=== PATIENT | female | born 1960 | race Caucasian/White ===

== ENCOUNTER → 2016-11-15 | Day surgery (SDC) | payer OTHER ==
[~2016-11-15] VITALS: Ht 154.9 cm; Wt 59.0 kg
[~2016-11-15] MED LIST: LATANOPROST2.5 ML OPH; MELATONIN PO; PATADAY2.5 ML OPH; TOVIAZ4 MG PO
--- NOTE | 2016-11-15 15:00 | Operative Report ---
Operative/Inv Procedure Report Surgery Date: 11/15/16 Name of Procedure: urethral sling, cytoscopy Pre-Operative Diagnosis: stress incontinence Post-Operative Diagnosis: same Estimated Blood Loss: less than 50ml Surgeon/Deep Fryer Assembler: BRYANT CHINO MD Anesthesia: local monitored anesthesi Implants: vaginal mesh Complications: none Condition: stable Operative Indication: stress incontinence Operative/Procedure Note Note: Operative dictation on patient Angela Fishman. Patient was identified in the holding area and consented for a urethral sling and cystoscopy. The risks benefits and alternatives of the surgery were given and all questions were answered. Patient was taken to the operating room and placed on the operating table in the supine position. Once timeout was performed the patient was given IV sedation and IV antibiotics. She was placed in the dorsal lithotomy position and prepped and draped in the standard sterile fashion. A Benavidez catheter was placed and the bladder was emptied. The Benavidez was clamped and placed on the patient's abdomen. 1% lidocaine with epinephrine was infiltrated into the anterior vaginal wall suburethrally. Vaginal flaps are created taking care not to injure the bladder or the urethra with Metzenbaum scissors. The Altis Sling kit was then opened and the trochars that are provided was used to place the sling into the obturator fascia on the left and right side. The sling was seen to be in a nice tension-free manner once the Prolene suture was used to tighten the sling. There was grossly irrigated with bacitracin irrigation. The incision was closed with 3-0 Vicryl running locking suture. The catheter was removed and a cystoscopy was performed. The bladder was globally inspected and there were no lesions tumors masses or abnormalities. The ureteral orifices were in their normal location. There was no mesh in the bladder or the urethra or the vaginal fornices. The bladder was emptied. Vaginal packing impregnated with bacitracin ointment was placed into the vaginal vault. Sponge and needle count were correct at the end of the case. Findings: no mesh in bladder, urethra or vaginal fornices. Normal cystoscopy. Discharge Disposition: Same Day Admissions
== END ==
LOC: STS 02:45
DX: N39.3 Stress incontinence (female) (male) (principal); F17.200 Nicotine dependence, unspecified, uncomplicated
CPT/HCPCS: C1771; J0690; J2250

== ENCOUNTER 2017-07-14 10:51 | Inpatient (IN) | payer OTHER ==
[~2017-07-14] VITALS: Ht 157.5 cm; Wt 45.0 kg
[~2017-07-14 10:51] MED LIST changes: +LIDOCAINE5 GM TOP; +MELATONIN3 M4 PO; +VITAMIN D2000 UNIT PO; +VITAMIN E100 UNI2 PO
--- NOTE | 2017-07-14 11:05 | ED PSYCHIATRIC COMPLAINT ---
History of Present Illness General Chief Complaint: Psychiatric Related Complaint Stated Complaint: +SI Source: patient, family Exam Limitations: poor historian Vital Signs & Intake/Output Vital Signs & Intake/Output Vital Signs Date Time Temp Pulse Resp B/P B/P Pulse O2 O2 Flow FiO2 Mean Ox Delivery Rate 07/15 1342 98.0 74 22 161/83 100 Room Air 07/15 0948 97.0 65 22 122/70 94 Room Air 07/15 0638 98.1 83 18 98/77 98 Room Air 07/15 0334 70 16 07/14 2026 98.2 63 16 115/64 100 Room Air 07/14 1811 97.4 86 16 110/72 99 Room Air 07/14 1437 98.0 64 18 132/78 99 Room Air ED Intake and Output 07/15 0000 07/14 1200 Intake Total Output Total Balance Patient 110 lb Weight Weight Reported by Patient Measurement Method Allergies Coded Allergies: meloxicam (Intermediate, ITCH 11/14/16) naproxen (From ALEVE) (Intermediate, ITCH 03/31/17) Triage Note: TRIAGE: 57 Y/O FEMALE PRESENTS WITH DAUGHTER. HISTORY OF BIPOLAR DISORDER. REPORTS INTERMITTENT SUICIDALITY. DENIES HOMOCIDALITY. REPORTS +CIGARETTES AND MARAJUANA; DENIES ETOH CONSUMPTION. WAS ON BOTH SERTRALINE AND FLUPHENAZINE ONE YEAR PRIOR BEFORE STOPPING. Triage Nurses Notes Reviewed? yes Onset: Gradual Duration: worse persistent since (1-2 MONTHS) Timing: recent history Severity: severe Severity Numbers: 10 Associated Symptoms: anxiety, impaired concentration, insomnia, suicidal ideation HPI: Patient is a 57-year-old female with history of bipolar, has been off medications for several months presenting to the emergency department with her daughter with chief complaint of increasing anxiety and depression and suicidal ideation. Patient does admit to auditory and visual hallucinations. Unable to describe exactly what she hears or sees. Denies specific plan for hurting herself. According to the daughter she's been off of her meds for about a year and a half. Unable to the home and take care of her self. (Hayde CRUZ,Rachel) Reconcile Medications Cholecalciferol (Vitamin D3) (Vitamin D) (Unknown Strength) CAPSULE (Unknown Dose) PO DAILY SUPPLEMENT (Reported) Fluphenazine HCl 1 MG TABLET 1 TAB PO QPM PSYCHIATRIC REASONS (Reported) Latanoprost 0.005 % DROPS 1 GTT OPH QPM GLAUCOMA (Reported) BOTH EYES Melatonin 3 MG TABLET 1 TAB PO PRN SLEEP (Reported) Olopatadine HCl (Pataday) 0.2 % DROPS 1 GTT OPH DAILY PRN ALLERGIES (Reported ) Sertraline HCl 25 MG TABLET 1 TAB PO DAILY PSYCHIATRIC REASONS (Reported) Vitamin E Mixed (Vitamin E) (Unknown Strength) TABLET (Unknown Dose) PO DAILY SUPPLEMENT (Reported) (Mi POTTER,Kike Aldrich) Past History Travel History Traveled to [place] past 21 day No Medical History Any Pertinent Medical History? 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 No (Rachel Avalos) Review of Systems Review of Systems Constitutional: Reports: no symptoms. Comments Review of systems: See HPI, All other systems negative. Constitutional, no chills fever or weight loss HEENT: No visual changes no sore throat no congestion Cardiovascular: No chest pain ,palpitation , orthopnea or ankle swelling Skin, no jaundice no rashes Respiratory: No dyspnea cough sputum or hemoptysis GI: No nausea no vomiting : No dysuria No hematuria Muscle skeletal: no back pain, no neck pain, Neurologic: No numbness Psych: Positive stress, anxiety and depression Heme/endocrine: No bruising no bleeding no polyuria or polydipsia Immunology: No splenectomy or history of AIDS (Rachel Avalos) Physical Exam Physical Exam General Appearance: no apparent distress, alert, awake, comfortable, DISHEVELED Neurological/Psychiatric: awake, anxious, MUMBLING, DISHEVELED Comments: Well-developed well-nourished person in no acute distress HEENT: Atraumatic, normocephalic Neck: Normal inspection Back: Nontender Cardiovascular: Regular rate and rhythms no murmurs rubs or gallops, normal JVP Respiratory: Chest nontender. No respiratory distress.breath sounds clear to auscultation bilaterally Extremity: No edema Neuro: Alert oriented to person, confused about place and situation. Skin: No appreciable rash on exposed skin, skin is warm and dry. Psych: Anxious mood, depressed affect, disheveled thought process SAD PERSONS SAD PERSONS Response Value Age <19 or >45 years? yes 1 Depression/Hopelessness? yes 2 Rational Thinking Loss? yes 2 Social Support? has support 0 Total 5 SAD PERSONS Done? yes (Rachel Avalos) Progress Differential Diagnosis: dementia, drug intoxication, drug overdose, drug withdrawal, electrolyte abnormality, MAJOR DEPRESSIVE DISORDER, MEDICATION NONCOMPLIANCE, BIPOLAR, DEPRESSIVE STATE, BIPOLAR MANIC STATE Plan of Care: Orders Procedure Date/time Status Continuous Observation Monitor 07/15 1900 Complete Continuous Observation Monitor 07/15 1500 Complete Vital Signs 07/15 1357 Active Inpt Psych Teach/Educate 07/15 1357 Active Nutritional Intake, Monitor 07/15 1357 Active Inpt Psych Auricular Acupunctu 07/15 1357 Active Continuous Observation Monitor 07/15 1100 Complete Admit to inpatient psych 07/15 1048 Active Continuous Observation Monitor 07/15 0700 Complete Admit to inpatient psych 07/15 UNK Active Nursing Misc 07/15 UNK Active Add-on Test (ER Only) 07/14 2359 Active URINALYSIS 07/14 1200 Complete Intake & Output 07/14 1057 Complete Current Medications Sig/Howard Start time Last Medication Dose Stop Time Status Admin Fluphenazine HCl 2 MG AT BEDTIME 07/15 2200 UNVr (Prolixin 2.5 MG Tablet) Acetaminophen 650 MG Q4P PRN 07/15 1300 AC (Tylenol) Hand-Off Endorsed To: Mi POTTER,Kike Aldrich Pending: consult Comments: 07/14/2017 9:00:24 PM patient will be signed out to Dr. Stark pending reevaluation. (Rachel Avalos) Comments: 07/14/2017 9:02:06 PM patient signed out to me. 07/15/2017 7:37:48 AM patient signed out to Dr. Dejesus at shift change control specialist. (Mi POTTER,Kike Aldrich) Departure Departure Disposition: STILL A PATIENT Condition: Stable Clinical Impression Primary Impression: Bipolar 1 disorder Referrals: Ashwin Begum DO (PCP/Family) Departure Forms: Customer Survey General Discharge Information (Rachel Avalos) Psych Admission Note Psychiatric Admission: I have seen and evaluated GAVIN,SHERRIE A. I have also reviewed all the pertinent lab results and diagnostic results. SHERRIE ALONSO will be admitted to our inpatient Psychiatric unit for treatment and care. PA/TERRAZZO LABORER Co-Sign Statement Statement: ED Attending supervision documentation- x I saw and evaluated the patient. I have also reviewed all the pertinent lab results and diagnostic results. I agree with the findings and the plan of care as documented in the PA's/TERRAZZO LABORER's documentation. [] I have reviewed the ED Record and agree with the PA's/TERRAZZO LABORER's documentation. [] Additions or exceptions (if any) to the PAs/TERRAZZO LABORER's note and plan are summarized below: [] (Oleg POTTER,Dallin)
[2017-07-14 11:41] LABS: ABSOLUTE BASOPHIL COUNT 0.1 /CUMM (0.0-0.2); ABSOLUTE EOSINOPHIL COUNT 0.1 /CUMM (0.0-0.7); ABSOLUTE GRANULOCYTE CT 8.2 /CUMM (1.4-6.5); ABSOLUTE LYMPH COUNT 2.5 /CUMM (1.2-3.4); ABSOLUTE MONOCYTE COUNT 0.7 /CUMM (0.10-0.60); BASOPHIL % 0.5 % (0.0-2.0); EOSINOPHIL % 0.6 % (0-5); GRANULOCYTE % 71.4 % (42.2-75.2); MEAN CORPUSCULAR HGB 32.5 PG (27.0-31.0); MEAN CORPUSCULAR HGB CONC 33.3 G/DL (33.0-37.0); MEAN CORPUSCULAR VOLUME 97.5 FL (81.0-99.0); MEAN PLATELET VOLUME 8.7 FL (7.4-10.4); PLATELET COUNT 376 /CUMM (130-400); RBC DISTRIBUTION WIDTH 13.8 % (11.5-14.5); RED BLOOD CELL CT 4.52 /CUMM (4.20-5.40); WHITE BLOOD CELL COUNT 11.6 /CUMM (4.8-10.8)
--- NOTE | 2017-07-14 14:33 | ED PSY CRISIS COLLATERAL NOTE ---
Collateral Note Collateral Note Family/Inform/Micha Contacts: SW spoke with the patients daughter, Aditi Jean Baptiste ([phone]), for collateral information. Aditi notes that the patient has been diagnosed with Bipolar Disorder for many years. Aditi reports that the patient was stable on her medications, up until about 1.5 years ago, when she stopped all of her medications. Aditi reports that the patient started to travel and found if difficult to obtain her medications, and therefore stopped them. Aditi reports that the patient has decompensated and that she and their family have been trying ot get her back into treatment. Aditi states that today her brother was visiting the patient and called Aditi to say that the patient needed to come into the hospital. Aditi reports that when her brother called her today he stated, that the patient was incontinent, "not making full sentences and huddled in a corner." She is concerned about the patient because she becomes very angry and childlike when she is not stable. Aditi states that the patient has been hospitalized at [facility] and did attempt to OD in the past. Aditi states that the patient needs to be stabilized on her medications and supports an inpatient admission, if that is where that can happen.
[2017-07-14] MEDS ORDERED: SERTRALINE HCL25 MG PO (20:24)
[2017-07-14] MEDS ORDERED: FLUPHENAZINE HCL1 M1 PO (20:25)
--- NOTE | 2017-07-15 10:03 | ED PSYCH CRISIS CONSULTATION ---
Crisis Consult Basic Assessment Date of Consult: 07/15/17 Responsible Person/Accompanied By: self Insurance Authorization: Insurance #1: Insurance name: CHARLI Phone number: Policy number: [id number] Group number: [id number] Authorization number: ED Provider: Patient's ED Provider: Rachel Avalos Primary Care Physician: Patient's PCP: Ashwin Begum DO PCP's Current Psychiatrist: none Chief Complaint: Psychiatric Related Complaint Patient's Quote: I'm overcome with sadness regarding my past. Trying to look forward to futu Present Illness: Pt is a 57 yo female presenting to [place] ED yesterday morning dysregulated and making suicidal statements. Pt brought in by her daughter who reports pt has a bipolar diagnosis but has been off her medications for about 1 yr. Family reports pt was found yesterday morning huddled in the corner incontinent and making bizarre non-sensical statements. reports the other night she was walking around the house naked urinating on the floor. Family reports this is the 3rd time pt has been brought to the hospital for an evaluation this past month. Pt has a hx in the early 1999s of inpatient admissions at [facility] and has been seeing Sol GAMEZ past 10yrs for outpatient therapy. Pt had been stable on medications Sertraline and Fluphenazine for many yrs but when she and moved out of state last yr she wasn't able to connect with a provider thus going off them. Family reports pt has been progressively unstable, manic, dysregulated easily agitated, not sleeping or eating well. Pt makes periodic suicidal statements but no attempts. Pt was evaluated 2 wks ago at [facility] ED and discharged with prescriptions to begin previous medications but pt has been refusing to take them. Pt reports sadness related to of daughter 11 yrs ago and recent of brother. Pt reports holidays are difficult but she tries to keep going a be happy. Pt currently denies SI/HI; AH/VH. Pt reports smoking cannabis and cigarettes daily and admits to 2x/wk etoh use. Pt reports she has been diagnosed bipolar in the past but doesn't believe it. Pt presents as alert, anxious and OX3. Pt appears disheveled with strong body odor. Pt speech is pressured and thoughts are tangential and disorganized. Pt presents with poor insight and judgement. Pt meets criteria for inpatient psychiatric admission. Pt initially opposed admission but after further conversation with her signed voluntary admission paperwork. Patient's Address: [address] [place] [id number] Other Phone Number: Who Do You Live With? Spouse Family/Informants Interviewed: collateral provided by [facility] Sol Contreras [phone], daughter Aditi [phone] and Randy Fishman. Family reports pt functioning has deteriorated since stopping medications. Pt refusing medications. Pt engaging in bizarre behaviors. Allergies - Coded Allergies: meloxicam (Intermediate, ITCH 11/14/16) naproxen (From ALEVE) (Intermediate, ITCH 03/31/17) Current Medications - Scheduled Medications Cholecalciferol (Vitamin D3) (Vitamin D) (Unknown Strength) CAPSULE (Unknown Dose) PO DAILY SUPPLEMENT (Reported) Entered as Reported by Herminia Esteban on 06/06/171613 Last Taken: Unknown Dose at an unknown date and time Fluphenazine HCl 1 MG TABLET 1 TAB PO QPM PSYCHIATRIC REASONS (Reported) Entered as Reported by Jamee Stephenson on 07/14/172024 Latanoprost 0.005 % DROPS 1 GTT OPH QPM GLAUCOMA (Reported) Entered as Reported by Pam Scott on 11/14/16913 Last Taken: At an unknown date and time Sertraline HCl 25 MG TABLET 1 TAB PO DAILY PSYCHIATRIC REASONS (Reported) Entered as Reported by Jamee Stephenson on 07/14/172023 Vitamin E Mixed (Vitamin E) (Unknown Strength) TABLET (Unknown Dose) PO DAILY SUPPLEMENT (Reported) Entered as Reported by Herminia Esteban on 06/06/171613 Last Taken: Unknown Dose at an unknown date and time Scheduled PRN Medications Melatonin 3 MG TABLET 1 TAB PO PRN SLEEP (Reported) Entered as Reported by Herminia Esteban on 06/06/171613 Olopatadine HCl (Pataday) 0.2 % DROPS 1 GTT OPH DAILY PRN ALLERGIES (Reported ) Entered as Reported by Pam Scott on 11/14/16913 Last Taken: At an unknown date and time Laboratory Results: Laboratory Tests 07/14/17 1200: Urine Opiates Screen < 100.00, Methadone Screen < 40, Barbiturate Screen < 60, Ur Phencyclidine Scrn < 6.00, Amphetamines Screen < 100, U Benzodiazepines Scrn < 85, Urine Cocaine Screen < 50, Urine Cannabis Screen > 80.00 H, Urine Color YEL, Urine Clarity HAZY H, Urine pH 6.5, Ur Specific Dunlow 1.010, Urine Protein NEG, Urine Ketones NEG, Urine Nitrite NEG, Urine Bilirubin NEG, Urine Urobilinogen 1.0, Ur Leukocyte Esterase NEG, Ur Microscopic SEDIMENT EXAMINED, Urine RBC 3-5, Urine WBC RARE, Ur Epithelial Cells MANY H, Urine Bacteria FEW H, Urine Hemoglobin MOD H, Urine Glucose NEG 07/14/17 1121: Anion Gap 14, Estimated GFR > 60, BUN/Creatinine Ratio 21.7, Glucose 102 H, Calcium 10.2, Total Bilirubin 1.1, AST 28, ALT 37, Alkaline Phosphatase 60, Total Protein 8.0, Albumin 5.0, Globulin 3.0, Albumin/Globulin Ratio 1.7, TSH & T3 &Free T4 Intrp 1.490, CBC w Diff NO MAN DIFF REQ, RBC 4.52, MCV 97.5, MCH 32.5 H, RDW 13.8, MPV 8.7, Gran % 71.4, Lymphocytes % 21.9, Monocytes % 5.6, Eosinophils % 0.6, Basophils % 0.5, Absolute Granulocytes 8.2 H, Absolute Lymphocytes 2.5, Absolute Monocytes 0.7 H, Absolute Eosinophils 0.1, Absolute Basophils 0.1, PUBS MCHC 33.3, Serum Alcohol < 10.0 Past History Past Medical History Neurological: NONE EENT: NONE Cardiovascular: NONE Respiratory: NONE Gastrointestinal: NONE Hepatic: NONE Renal: NONE Musculoskeletal: NONE Psychiatric: bipolar disease Endocrine: NONE Blood Disorders: NONE Cancer(s): NONE 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 Diagnosis by History: Bipolar Disorder Substance Use/Abuse History Drug Use/Abuse Substances Used/Abused Yes Substance Used/Abused Marijuana Last Used yesterday How often daily Substance Abuse Treatment Substance Abuse Treatment Past Substance Abuse [place] No Inpatient Treatment No Outpatient Treatment No Comments: pt reports daily marijuana use. reports ocassional etoh-2x/wk. denies other substances Current Mental Status Mental Status Orientation: Person, Place, Situation Affect: Anxious, Angry, Sad Speech: Pressured Neuro-vegetative: Appetite Decreased, Sleep Disturbance Appearance Appearance- Dress/Hygiene: hospital scrubs; disheveled; thin Behaviors Thought Process: Flight of Ideas, Irrational, Tangential Thought Content: Paranoid Memory: Impaired Insight: Poor SI/HI Risk Assessment Past Suicidal Ideation/Attempts Yes Current Suicidal Ideation/Att No Past Homicidal Ideation/Att: No Current Homicidal Ideation/Attempts No Degree of Intent: None Danger To: Self Gravely Disabled: Inability, Lack of Insight, Poor Impulse Control, Poor Judgment Risk Factors: high anxiety/distress, SA/MH hospitalized, substance abuse, poor impulse control Lethality Ratin PTSD Checklist PTSD Done? patient declined ED Management Sitter: Yes Restraints: No DSM5/PS Stressors/Medical Prob Diagnosis' (DSM 5, Stressors, Medical): Unspecified Bipolar d/o F33.2 Cannabis use d/o F12.20 family dynamics housing employment Current GAF: 20 Comments: 3rd ED visit past month for emotional dyregulation. Pt unstable since off medications past yr. Departure Disposition Psych Medical Clearance Date: 07/15/17 Medically Cleared at: 0730 Time Started: 0730 Time Ended: 0815 Psychiatrist Consulted: Cheikh Rios MD Date Disposition Established: 07/15/17 Time Disposition Established: 1000 Plan for Disposition - Modality: Inpatient Psychiatry Facility: [facility] Rationale for Disposition: [facility]. Type of IP Admission: Voluntary Referrals Ashwin Begum DO (PCP/Family)
--- NOTE | 2017-07-15 11:24 | IP CRISIS DIAG ASSESS PSYCH ---
Diagnostic Assessment Basic Assessment Insurance Authorization: Insurance #1: Insurance name: CHARLI Phone number: Policy number: [id number] Group number: [id number] Authorization number: [id number] Primary Care Physician: Patient's PCP: Ashwin Begum DO PCP's Patient's Quote: I'm overcome with sadness regarding mypast. Trying to look forward to futu Present Illness: Pt is a 57 yo female presenting to [facility] ED yesterday morning dysregulated and making suicidal statements. Pt brought in by her daughter who reports pt has a bipolar diagnosis but has been off her medications for about 1 yr. Family reports pt was found yesterday morning huddled in the corner incontinent and making bizarre non-sensical statements. reports the other night she was walking around the house naked urinating on the floor. Family reports this is the 3rd time pt has been brought to the hospital for an evaluation this past month. Pt has a hx in the early 1999s of inpatient admissions at [facility] and has been seeing Sol GAMEZ past 10yrs for outpatient therapy. Pt had been stable on medications Sertraline and Fluphenazine for many yrs but when she and [place] out of state last yr she wasn't able to connect with a provider thus going off them. Family reports pt has been progressively unstable, manic, dysregulated easily agitated, not sleeping or eating well. Pt makes periodic suicidal statements but no attempts. Pt was evaluated 2 wks ago at [facility] ED and discharged with prescriptions to begin previous medications but pt has been refusing to take them. Pt reports sadness related to of daughter 11 yrs ago and recent of brother. Pt reports holidays are difficult but she tries to keep going a be happy. Pt currently denies SI/HI; AH/VH. Pt reports smoking cannabis and cigarettes daily and admits to 2x/wk etoh use. Pt reports she has been diagnosed bipolar in the past but doesn't believe it. Pt presents as alert, anxious and OX3. Pt appears disheveled with strong body odor. Pt speech is pressured and thoughts are tangential and disorganized. Pt presents with poor insight and judgement. Pt meets criteria for inpatient psychiatric admission. Pt initially opposed admission but after further conversation with her signed voluntary admission paperwork. Patient's Address: [address] [place] [address] [address] [place] [address] Other Phone Number: Who Do You Live With? Spouse Feel Safe Where You Live? Yes Feel Safe in Your Relationship Yes Marital Status: Do You Have Children? Yes Primary Language? Welsh Language(s) Spoken At Home: Welsh, Bermudian Family/Informants Interviewed: collateral provided by Outpatient [facility] Sol Contreras [phone], daughter Aditi [phone] and Randy Fishman. Family reports pt functioning has deteriorated since stopping medications. Pt refusing medications. Pt engaging in bizarre behaviors. Allergies - Coded Allergies: meloxicam (Intermediate, ITCH 11/14/16) naproxen (From ALEVE) (Intermediate, ITCH 03/31/17) Current Medications - Scheduled Medications Cholecalciferol (Vitamin D3) (Vitamin D) (Unknown Strength) CAPSULE (Unknown Dose) PO DAILY SUPPLEMENT (Reported) Entered as Reported by Herminia Esteban on 06/06/171613 Last Taken: Unknown Dose at an unknown date and time Fluphenazine HCl 1 MG TABLET 1 TAB PO QPM PSYCHIATRIC REASONS (Reported) Entered as Reported by Jamee Stephenson on 07/14/172024 Latanoprost 0.005 % DROPS 1 GTT OPH QPM GLAUCOMA (Reported) Entered as Reported by Pam Scott on 11/14/16913 Last Taken: At an unknown date and time Sertraline HCl 25 MG TABLET 1 TAB PO DAILY PSYCHIATRIC REASONS (Reported) Entered as Reported by Jamee Stephenson on 07/14/172023 Vitamin E Mixed (Vitamin E) (Unknown Strength) TABLET (Unknown Dose) PO DAILY SUPPLEMENT (Reported) Entered as Reported by Herminia Esteban on 06/06/171613 Last Taken: Unknown Dose at an unknown date and time Scheduled PRN Medications Melatonin 3 MG TABLET 1 TAB PO PRN SLEEP (Reported) Entered as Reported by Herminia Esteban on 06/06/171613 Olopatadine HCl (Pataday) 0.2 % DROPS 1 GTT OPH DAILY PRN ALLERGIES (Reported ) Entered as Reported by Pam Scott on 11/14/16913 Last Taken: At an unknown date and time Consequences of Psych Med Use: 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 when no longer on medications Lab Results: Laboratory Tests 07/14/17 1200: Urine Opiates Screen < 100.00, Methadone Screen < 40, Barbiturate Screen < 60, Ur Phencyclidine Scrn < 6.00, Amphetamines Screen < 100, U Benzodiazepines Scrn < 85, Urine Cocaine Screen < 50, Urine Cannabis Screen > 80.00 H, Urine Color YEL, Urine Clarity HAZY H, Urine pH 6.5, Ur Specific [place] 1.010, Urine Protein NEG, Urine Ketones NEG, Urine Nitrite NEG, Urine Bilirubin NEG, Urine Urobilinogen 1.0, Ur Leukocyte Esterase NEG, Ur Microscopic SEDIMENT EXAMINED, Urine RBC 3-5, Urine WBC RARE, Ur Epithelial Cells MANY H, Urine Bacteria FEW H, Urine Hemoglobin MOD H, Urine Glucose NEG Toxicology Screen Completed? Yes Results: positive (cannabis) Past History Past Surgical History Surgical History none Abuse/Trauma History Trauma History/Current Trauma: emotional Psychosocial History Strengths/Capabilities: very supportive family Physical Limitations (Interventions): none observed, patient mentioned having an implant and son stated it was for incontenese Psychiatric Treatment History Psych Treatment Psychiatric Treatment Yes Inpatient Treatment Yes ([facility] x2 early ) Outpatient Treatment Yes Location of Treatment [facility] past 10 yrs Reason for Treatment Bipolar Response to Treatment pt was stable unstable stopping medications about 1 yr ago. Diagnosis by History: Bipolar Disorder Risk Factors: high anxiety/distress, SA/MH hospitalized, substance abuse, poor impulse control Substance Use/Abuse History Drug Use/Abuse minimum 12mo Hx Substances Used/Abused Yes Substance Used/Abused Marijuana Last Used yesterday How often daily Substance Abuse Treatment Substance Abuse Treatment Past Substance Abuse TX No Inpatient Treatment No Outpatient Treatment No Education History Highest Level of Education: bachelor's degree Preferred Learning Style: visual, auditory, experiential Current Mental Status Mental Status Orientation: Person, Place, Situation Affect: Anxious, Angry, Sad Speech: Pressured Neuro-vegetative: Appetite Decreased, Sleep Disturbance Appearance Appearance- Dress/Hygiene: hospital scrubs; disheveled; thin Behaviors Thought Process: Flight of Ideas, Irrational, Tangential Thought Content: Paranoid Memory: Impaired Insight: Poor SI/HI Risk Assessment - Minimum 6mo History- Past Suicidal Ideation/Attempts Yes Current Suicidal Ideation/Att No Past Homicidal Ideation/Att: No Current Homicidal Ideation/Attempts No Degree of Intent: None Danger To: Self Gravely Disabled: Inability, Lack of Insight, Poor Impulse Control, Poor Judgment Risk Factors: high anxiety/distress, SA/MH hospitalized, substance abuse, poor impulse control Lethality Ratin Needs/Init TX Plan/Goals: Psychiatric evlaution medication assessment Individual, group and family tx coordinated discharge planning AUDIT-C Questionnaire: AUDIT-C Questionnaire: Response Value ETOH use in the past year 2-4 times/month 2 # drinks typical/day 1 or 2 0 6 or > drinks per occasion Less than monthly 1 Total 3 DSM5/PS Stressors/Medical Prob Diagnosis' (DSM 5, Stressors, Medical): Unspecified Bipolar d/o F33.2 Cannabis use d/o F12.20 family dynamics housing employment Current GAF: 20 Comments: 3rd ED visit past month for emotional dyregulation. Pt unstable since off medications past yr.
[2017-07-15 14:09] VITALS: BP 102/59
--- NOTE | 2017-07-15 15:12 | Cons- Medical ---
General Information and HPI Consulting Request Date of Consult: 07/15/17 Requested By: Cheikh Rios MD Reason for Consult: Medical H&P Source of Information: patient, old records History of Present Illness: 57-year-old female past medical history of bipolar disorder who is here with depression and suicidality. Patient denies any chronic medical problems but says she's had numerous procedures done. She says she has stress/urge incontinence and had a implant/into stimulator placed by Dr. Rodriguez's earlier this here. She says it's not working well and she still continues to have the incontinence. She denies any diabetes or high blood pressure asthma or ulcers. She denies any nausea vomiting diarrhea no cough no sputum or other complaints. She is very emotionally labile and cries multiple times during the interview. Allergies/Medications Allergies: Coded Allergies: meloxicam (Intermediate, ITCH 11/14/16) naproxen (From ALEVE) (Intermediate, ITCH 03/31/17) Home Med List: Cholecalciferol (Vitamin D3) (Vitamin D) (Unknown Strength) CAPSULE (Unknown Dose) PO DAILY SUPPLEMENT (Reported) Fluphenazine HCl 1 MG TABLET 1 TAB PO QPM PSYCHIATRIC REASONS (Reported) Latanoprost 0.005 % DROPS 1 GTT OPH QPM GLAUCOMA (Reported) BOTH EYES Melatonin 3 MG TABLET 1 TAB PO PRN SLEEP (Reported) Olopatadine HCl (Pataday) 0.2 % DROPS 1 GTT OPH DAILY PRN ALLERGIES (Reported ) Sertraline HCl 25 MG TABLET 1 TAB PO DAILY PSYCHIATRIC REASONS (Reported) Vitamin E Mixed (Vitamin E) (Unknown Strength) TABLET (Unknown Dose) PO DAILY SUPPLEMENT (Reported) Current Medications: Current Medications Sig/Howard Start time Last Medication Dose Route Stop Time Status Admin Acetaminophen 650 MG Q4P PRN 07/15 1300 AC PO Fluphenazine HCl 2 MG AT BEDTIME 07/15 2200 AC PO Lorazepam 1 MG ONE ONE 07/15 0415 DC 07/15 PO 07/15 515 0515 Lorazepam 0 .STK-MED ONE 07/15 0510 DC PO Review of Systems Review of Systems Constitutional: Denies: no symptoms, chills, diaphoresis, fever. Cardiovascular: Denies: no symptoms, chest pain, edema. Respiratory: Denies: no symptoms, cough, hemoptysis. GI: Reports: no symptoms, constipation. 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 Home Smoking Status: Current Everyday Smoker ETOH Use: denies use Illicit Drug Use: marijuana Other Social History: She says her father when he was 80, her mother is alive and well and she denies any medical problems in the family Exam & Diagnostic Data Last 24 Hrs of Vital Signs/I&O Vital Signs Date Time Temp Pulse Resp B/P B/P Pulse O2 O2 Flow FiO2 Mean Ox Delivery Rate 07/15 1409 98.1 64 102/59 07/15 1342 98.0 74 22 161/83 100 Room Air 07/15 0948 97.0 65 22 122/70 94 Room Air 07/15 0638 98.1 83 18 98/77 98 Room Air 07/15 0334 70 16 07/14 2026 98.2 63 16 115/64 100 Room Air 07/14 1811 97.4 86 16 110/72 99 Room Air Intake & Output 07/15 1600 07/15 0800 07/15 0000 Intake Total Output Total Balance Patient 45.019 kg Weight Physical Exam General Appearance: alert, awake, anxious, thin Eyes: Bilateral: normal appearance, PERRL, EOMI. Ears, Nose, Throat: normal pharynx, normal ENT inspection Neck: normal inspection, supple, full range of motion Respiratory: normal breath sounds, chest non-tender, no respiratory distress Cardiovascular: regular rate/rhythm Gastrointestinal: normal bowel sounds, soft, non-tender, no organomegaly Back: normal inspection, normal range of motion Extremities: normal inspection, no edema Neurologic/Psych: no motor/sensory deficits, awake, alert, oriented x 3, normal gait Other Physical Findings: She is awake and alert and oriented 3. Cranial nerves III-12 are intact, motor and sensory are intact, reflexes are 2+ and symmetric and no cerebellar signs elicited. Last 24 Hrs of Labs/Rafy: Laboratory Tests 07/14 1200 Toxicology Urine Opiates Screen (>2000 NG/ML) < 100.00 Methadone Screen (>300 NG/ML) < 40 Barbiturate Screen (>200 NG/ML) < 60 Ur Phencyclidine Scrn (>25 NG/ML) < 6.00 Amphetamines Screen (>1000 NG/ML) < 100 U Benzodiazepines Scrn (>200 NG/ML) < 85 Urine Cocaine Screen (>300 NG/ML) < 50 Urine Cannabis Screen (>50 NG/ML) > 80.00 H Urines Urine Color (YEL,AMB,STR) YEL Urine Clarity (CLEAR) HAZY H Urine pH (5.0 - 8.0) 6.5 Ur Specific [place] (1.001 - 1.035) 1.010 Urine Protein (NEG,<30 MG/DL) NEG Urine Ketones (NEG) NEG Urine Nitrite (NEG) NEG Urine Bilirubin (NEG) NEG Urine Urobilinogen (0.1 - 1.0 EU/dl) 1.0 Ur Leukocyte Esterase (NEG) NEG Ur Microscopic SEDIMENT EXAMINED Urine RBC (0 - 5 /HPF) 3-5 Urine WBC (0 - 2 /HPF) RARE Ur Epithelial Cells (NONE,FEW) MANY H Urine Bacteria (NEG/NONE) FEW H Urine Hemoglobin (NEG) MOD H Urine Glucose (N MG/DL) NEG 07/14 1121 Chemistry Sodium (137 - 145 mmol/L) 141 Potassium (3.5 - 5.1 mmol/L) 4.1 Chloride (98 - 107 mmol/L) 102 Carbon Dioxide (22 - 30 mmol/L) 24 Anion Gap (5 - 16) 14 BUN (7 - 17 mg/dL) 13 Creatinine (0.5 - 1.0 mg/dL) 0.6 Estimated GFR (>60 ml/min) > 60 BUN/Creatinine Ratio (7 - 25 %) 21.7 Glucose (65 - 99 mg/dL) 102 H Calcium (8.4 - 10.2 mg/dL) 10.2 Total Bilirubin (0.2 - 1.3 mg/dL) 1.1 AST (14 - 36 U/L) 28 ALT (9 - 52 U/L) 37 Alkaline Phosphatase (<127 U/L) 60 Total Protein (6.3 - 8.2 g/dL) 8.0 Albumin (3.5 - 5.0 g/dL) 5.0 Globulin (1.9 - 4.2 gm/dL) 3.0 Albumin/Globulin Ratio (1.1 - 2.2 %) 1.7 TSH &T3 &Free T4 Intrp (0.270 - 4.20 uIU/mL) 1.490 Hematology CBC w Diff NO MAN DIFF REQ WBC (4.8 - 10.8 /CUMM) 11.6 H RBC (4.20 - 5.40 /CUMM) 4.52 Hgb (12.0 - 16.0 G/DL) 14.7 Hct (37 - 47 %) 44.0 MCV (81.0 - 99.0 FL) 97.5 MCH (27.0 - 31.0 PG) 32.5 H RDW (11.5 - 14.5 %) 13.8 Plt Count (130 - 400 /CUMM) 376 MPV (7.4 - 10.4 FL) 8.7 Gran % (42.2 - 75.2 %) 71.4 Lymphocytes % (20.5 - 51.1 %) 21.9 Monocytes % (1.7 - 9.3 %) 5.6 Eosinophils % (0 - 5 %) 0.6 Basophils % (0.0 - 2.0 %) 0.5 Absolute Granulocytes (1.4 - 6.5 /CUMM) 8.2 H Absolute Lymphocytes (1.2 - 3.4 /CUMM) 2.5 Absolute Monocytes (0.10 - 0.60 /CUMM) 0.7 H Absolute Eosinophils (0.0 - 0.7 /CUMM) 0.1 Absolute Basophils (0.0 - 0.2 /CUMM) 0.1 PUBS MCHC (33.0 - 37.0 G/DL) 33.3 Toxicology Serum Alcohol (<10 MG/DL) < 10.0 Assessment/Plan Assessment/Plan 57-year-old female active tobacco use, stress incontinence status post surgery here with depressive and suicidal symptoms. She is requesting a nicotine patch which I'll order. She is constipated and will order MiraLAX daily and senna when necessary. And she needs outpatient follow-up with Dr. Yung on discharge as she wants to see her regarding the recurrence of the incontinence. Problem List: 1. Bipolar disorder Consult Acknowledgment - Thank you for your consult request.
[2017-07-15 15:37] VITALS: BP 99/64
[2017-07-15 19:55] VITALS: BP 136/99
[2017-07-16 08:01] VITALS: BP 124/78
--- NOTE | 2017-07-16 12:00 | CPS PROVIDER INIT ASMT PSYCH ---
Psychiatric Admission University Administrator's Note Reviewed: Yes Patient Seen and Examined: Yes Identifying Information: 57-year-old white female who presented to [facility]'s emergency room at the behest of her daughter Chief Complaint: The patient believes that she doesn't need to be here and does not acknowledge any mental health issues Reaction to Hospitalization: Patient wanted to be discharged History of Present Illness Onset of Illness: The patient reportedly was stable on medications for several years but has not been on medications and since the spring she had been gradually deteriorating over the past few months Circumstances Leading to Admission: The patient was found by her daughter incontinent and regressed Problem(s) Justifying Need for Admission: Acute psychotic symptoms Past Psychiatric History Past Diagnosis(es)- if any: Past diagnoses are unclear but it seems that there was suspicion of a psychotic illness for which she was prescribed fluphenazine Past Precipitating Factors- if any: Noncompliance with medications - Include inpatient and outpatient treatment Treatment History: The patient was previously on fluphenazine and sertraline and reportedly was stable for several years before she went off this medication History of Suicide Attempts or Gestures No history of prior suicide attempts Substance Abuse History: The patient smokes cannabis and cigarettes daily, she reported that she only drinks alcohol twice a week Allergies: Coded Allergies: meloxicam (Intermediate, ITCH 11/14/16) naproxen (From ALEVE) (Intermediate, ITCH 03/31/17) Home Med List: The patient has not been on medications for several months - Include any medical condition(s) that may - impact the patient's recovery/remission Past History Medical History Neurological: NONE EENT: NONE Cardiovascular: NONE Respiratory: NONE Gastrointestinal: NONE Hepatic: NONE Renal: NONE Musculoskeletal: NONE Psychiatric: bipolar disease Endocrine: NONE Blood Disorders: NONE Cancer(s): NONE 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/Reproductive: NONE Other Medical Hx: urinary incontinence History of MRSA: No History of VRE: No History of CDIFF: No Isolation History: Standard Surgical History Surgical History: none Psychiatric Family/Social Hx Family History Psychiatric Illness: No known psychiatric history in family Substance Use: Unknown Suicides: No known suicides Social History Living Situation: Patient was patient was living by herself Significant Relationships (family/friends): Daughter Education: See the social work assessment Vocation/Occupation: Unemployed Legal: None Healthly Behaviors Screening Tobacco Screening Tobacco Use from ED Docu: Current Daily Use Daily Tobacco Use Amount/Type: => 5 Cigarettes daily - If tobacco counseling indicated - the following topics are required. - #1 Recognizing dangerous situations. - #2 Coping Skills. - #3 Basic information about quitting. Status of Tobacco Cessation Counseling: #1, #2 AND #3 Completed Cessation Med Status Nicotine Patch Ordered Alcohol Screening - ETOH screen POS if BAL >=80 or Audit-C>= M4/F3 Audit-C Score from Diag Assess: 3 Blood Alcohol Level: Laboratory Tests 07/14 1121 Toxicology Serum Alcohol (<10 MG/DL) < 10.0 Alcohol Use Screening Results: Neg per Audit C &/or BAL - If ETOH counseling indicated - the following topics are required. - #1 Express concern about the patient's - drinking at unhealthy levels, include informing - of national norms for moderate drinking: - men <= 14 drinks/week, max 4 drinks/occasion - women <= 7 drinks/week, max 3 drinks/occasion - #2 Providing feedback, including linking alcohol to - negative physical effects (liver injury, hypertension) - negative emotional effects (relationship problems and - depression) - negative occupational consequences (reduced work - performance) - #3 Advising the patient to abstain from alcohol or - to drink below national norms for moderate drinking - (as listed above). Status of ETOH Use Counseling: N/A B/C NO ETOH Use Metabolic Screening - Screen if on a Neuroleptic Medication - Metabolic screening should include: - Blood Pressure, BMI, Glucose or Hgb A1c, & a - Lipid profile from within the past 365 days. Metabolic Screening (X) Not Applicable, patient not on a neuroleptic. OR () Patient on a neuroleptic(s) . Enter below results for Hemoglobin A1C, and lipid panel if obtained during the last 365 days. BMI: 20.100 Blood Pressure: 108/65 Laboratory Results From [facility] (If applicable): Exam and Plan Mental Status Examination Ambulation Status: fully mobile Appearance: She was found incontinent by nurses this morning Attitude towards examiner: Cooperative Psychomotor activity: Normal Behavior: Bizarre and regressed Quality of speech: Talkative Affect: Euthymic Mood: Denied feeling depressed Suicidal Ideation: Denied Homicidal Ideation: Denied Hallucinations: Denied Paranoid/Delusional Material: The patient was suspicious of her daughters Difficulties with thought organization: The patient had difficulty with thought organization Insight: Poor insight Judgment: Poor judgment Orientation: Oriented to time place and person Cognition: Seems to have difficulty with attention and concentration and information processing Memory Function: No signs of short-term memory dysfunction Estimate of intellectual functioning: Average Assets/Strengths Patient Identified Assets/Strengths: Patient is intelligent and self advocating Impression/Plan Impression and Plan: The patient is a 57-year-old white woman who was brought to the emergency room because his daughter found her incontinent and called up in a ball in a corner. Past history suggests the presence of a psychotic disorder she has been off medications for several months she presents in a disorganized thought and behavior - Include all active medical diagnosis that require tx DSM 5 Diagnosis(es): Unspecified psychotic disorder Cannabis use disorder Nicotine use disorder - Initial Tx Plan for Active Psych & Medical Conditions Treatment Plan: Inpatient psychiatric care with 15 minute checks, the patient was also placed on one-to-one supervision today because of her disorganization The patient will be evaluated once a shift by the nursing staff for safety and to evaluate whether she will continue to need the one-to-one observation the patient was placed back on the fluphenazine the patient will be seen daily by the M.D. to reevaluate medications The patient will be encouraged to attend group therapy activities therapy and milieu therapy - Factors that would help patient function - in a less restrictive setting. Factors: Medication compliance
[2017-07-16 12:22] VITALS: BP 108/65
--- NOTE | 2017-07-16 12:34 | SOCIAL WORKER PROG NOTE PSYCH ---
Tiny Flowers 07/16/17 1229: Social Work Progress Note Progress Note SW met with pt to review psychosocial history. The pt stated, "You are the certified social workers in health care you have the information." The pt became agitated and left the room. SW unable to complete interview and psychosocial assessment.
--- NOTE | 2017-07-16 15:29 | SOCIAL WORKER PROG NOTE PSYCH ---
Social Work Progress Note Progress Note Angela was on a one to one today for monitoring due to confusion/ disorganization. She presented as tearful stating she couldn't take another day here and needs to go home. I told her due to her symptoms right now it was highly unlikely she would be discharged today. She wanted to call her together. Dr. Rios joined for this phone conference. Mr. Amaya stated he really wanted her to be better before coming home to avoid a readmission. She started to get frustrated with his responses, stating "he doesn't want me home." Emphasized that he just wants her to be well. He indicated during the call that he has been trying to get her to see a psychiatrist in the area, but she would not go. He also indicated that she hasn't been compliant with taking medications. The last time she actually saw a psychiatrist was [address] Rios told Angela she was not leaving and that we would evaluate how she is doing on Friday. Asked her if he was available for a meeting on Friday? He was not due to work, but could possibly be available by phone. Angela was told that we needed to see if the medication was going to help and then make a plan from there. Told her it was too early to determine discharge. She was able to hear what was said despite her disagreement to this plan.
[2017-07-16 16:12] VITALS: BP 107/59; BP 97/57
[2017-07-16 20:02] VITALS: BP 92/54
[2017-07-17 07:59] VITALS: BP 104/61
--- NOTE | 2017-07-17 11:14 | SOCIAL WORKER SOCIAL HX PSYCH ---
Social History Basic Assessment Insurance Authorization: Insurance #1: Insurance name: CHARLI Phone number: Policy number: [id number] Group number: [id number] Authorization number: Primary Care Physician: Patient's PCP: Ashwin Begum DO PCP's Present Problem: Pt is a 57 yo female presenting to [facility] yesterday morning dysregulated and making suicidal statements. Pt brought in by her daughter who reports pt has a bipolar diagnosis but has been off her medications for about 1 yr. Family reports pt was found yesterday morning huddled in the corner incontinent and making bizarre non-sensical statements. reports the other night she was walking around the house naked urinating on the floor. Family reports this is the 3rd time pt has been brought to the hospital for an evaluation this past month. Pt has a hx in the early 1999s of inpatient admissions at [facility] and has been seeing Sol GAME[facility] past 10yrs for outpatient therapy. Pt had been stable on medications Sertraline and Fluphenazine for many yrs but when she and moved out of state last yr she wasn't able to connect with a provider thus going off them. Family reports pt has been progressively unstable, manic, dysregulated easily agitated, not sleeping or eating well. Pt makes periodic suicidal statements but no attempts. Pt was evaluated 2 wks ago at [facility] ED and discharged with prescriptions to begin previous medications but pt has been refusing to take them. Pt reports sadness related to of daughter 11 yrs ago and recent of brother. Pt reports holidays are difficult but she tries to keep going a be happy. Pt currently denies SI/HI; AH/VH. Pt reports smoking cannabis and cigarettes daily and admits to 2x/wk etoh use. Pt reports she has been diagnosed bipolar in the past but doesn't believe it. Pt presents as alert, anxious and OX3. Pt appears disheveled with strong body odor. Pt speech is pressured and thoughts are tangential and disorganized. Pt presents with poor insight and judgement. Pt meets criteria for inpatient psychiatric admission. Pt initially opposed admission but after further conversation with her signed voluntary admission paperwork.>>>>Dwain Moffett LCSW Primary Language? Afghan Language(s) Spoken At Home: Afghan, Panamanian Living Situation Rents or Owns Home? rents Feel Safe Where You Are Living Yes Feel Safe in Relationships? Yes Allergies - Coded Allergies: meloxicam (Intermediate, ITCH 11/14/16) naproxen (From ALEVE) (Intermediate, ITCH 03/31/17) Current Medications - Scheduled Medications Cholecalciferol (Vitamin D3) (Vitamin D) (Unknown Strength) CAPSULE (Unknown Dose) PO DAILY SUPPLEMENT (Reported) Entered as Reported by Herminia Esteban on 06/06/171613 Last Taken: Unknown Dose on 07/14/17 Fluphenazine HCl 1 MG TABLET 1 TAB PO QPM PSYCHIATRIC REASONS (Reported) Entered as Reported by Jamee Stephenson on 07/14/172024 Last Taken: Unknown Dose at an unknown date and time Latanoprost 0.005 % DROPS 1 GTT OPH QPM GLAUCOMA (Reported) Entered as Reported by Pam Scott on 11/14/16913 Last Taken: 07/13/17 Sertraline HCl 25 MG TABLET 1 TAB PO DAILY PSYCHIATRIC REASONS (Reported) Entered as Reported by Jamee Stephenson on 07/14/172023 Last Taken: Unknown Dose at an unknown date and time Vitamin E Mixed (Vitamin E) (Unknown Strength) TABLET (Unknown Dose) PO DAILY SUPPLEMENT (Reported) Entered as Reported by Herminia Esteban on 06/06/171613 Last Taken: Unknown Dose on 07/14/17 Scheduled PRN Medications Melatonin 3 MG TABLET 1 TAB PO PRN SLEEP (Reported) Entered as Reported by Herminia Esteban on 06/06/171613 Last Taken: 07/13/17 Olopatadine HCl (Pataday) 0.2 % DROPS 1 GTT OPH DAILY PRN ALLERGIES (Reported ) Entered as Reported by Pam Scott on 11/14/16913 Last Taken: 07/14/17 Past History Past Medical History Neurological: NONE EENT: NONE Cardiovascular: NONE Respiratory: NONE Gastrointestinal: NONE Hepatic: NONE Renal: NONE Musculoskeletal: NONE Psychiatric: bipolar disease Endocrine: NONE Blood Disorders: NONE Cancer(s): NONE [employer]/Reproductive: NONE Past Surgical History Surgical History: appendectomy, cholecystectomy /Family History Place/Country of Origin: [place] Childhood Family Constellation: Pt reports having a normal childhood family Primary Childhood Caretakers: father, mother Family Life During Childhood: "wonderful" DCF Involvement? Yes Explain: Pt is poor historian at times Mother's Age (Current/): 86 Relationship w/Mother: "wonderful" Father's Age (Current/): 80 Relationship w/Father: "wonderful" Any Sibling(s)? Yes Sibling's Gender(s)/Age(s): male Sibling 1:, male Sibling 2:, female Sibling 3:, female Sibling 4:, female Sibling 5:, male Sibling 6: Relationship w/Sibling(s): Pt said she gets along with her siblings, is the middle of 7 siblings . She said they live all around and would not elaborate Relationship w/Friends: " good , I have lots of friends." Number of Pregnancies: 7 Number of Miscarriages: 4 Other Comments: Pt unable to differentiate between miscarriage and Abuse/Trauma History Trauma History/Current Trauma: emotional Legal History Legal Guardian/Address/Phone: self Current Legal Status: none Pending Court Dates: NA Have you ever been arrested No Hx of Juvenile Legal Charges? No Hx of Adult Legal Charges? No Civil Proceedings: NA Domestic Relations Court: NA Child Protective Serv Involvmnt NA Process Designer NA Psychosocial History Primary Support System: Strengths/Capabilities: very supportive family Weaknesses: lack of insight into mental health Physical Limitations (Interventions): none observed, patient mentioned having an implant and son stated it was for incontenese Last Physical: 2017 History of Seizures? No History of Blackouts? No ADL Limitations: showering [place]/Social/Peer Relations pt reports she has really good friends Meaningful Activities: daily chores are her meaningful activities Childhood Cheondoism: Taoism, Christianity Current Congregation Affiliation: Taoism, Christianity Is Spirituality Important to You? yes Cultural/Ethnic Issues: none Are There Developmental Issues? No Milestones Achieved: fine motor, gross motor Psychiatric Treatment History Psych Treatment Inpatient Treatment Yes ([facility] x2 early ) Outpatient Treatment Yes Location of Treatment [facility] past 10 yrs Reason for Treatment Bipolar Response to Treatment pt was stable unstable stopping medications about 1 yr ago. Diagnosis: Bipolar Disorder Psychodynamic Issues: none stated Risk Factors: high anxiety/distress, SA/MH hospitalized, substance abuse, poor impulse control Substance Use/Abuse History Drug Use/Abuse Substance Used/Abused Marijuana Last Used yesterday How often daily Explain: pt is poor historian around substance abuse hx she kept asking this va underwriter " what do you mean?" Have You Ever Attended AA? No Do You Attend AA Currently? No Do You Have a Sponsor? No Substance Abuse Treatment Substance Abuse Treatment Inpatient Treatment No Outpatient Treatment No Sexual History Sexually Active Yes # of partners 1 Sexual Orientation Heterosexual Use of Protection No Sexual Concerns: none Education History Highest Level of Education: bachelor's degree Highest Grade Completed: bachelors Vocational Year Completed: NA Number of College Years: 4 College Degree/Major: NA Other Degree(s): NA Preferred Learning Style: visual, auditory, experiential HX of Learning Difficulties: None reported Barriers to Learning: None reported Special Communication Needs: None reported Employment History Employment Unemployed Vocation/Occupational Hx: NA No. 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 History Have You Been in The ? No If Yes, Explain: NA Type of Discharge: General (NA) Date of Discharge: NA Current Mental Status Mental Status Orientation: Person, Place, Situation Affect: Anxious, Angry, Sad Speech: Pressured Neuro-vegetative: Appetite Decreased, Sleep Disturbance Appearance Appearance- Dress/Hygiene: hospital scrubs; disheveled; thin Behaviors Thought Process: Flight of Ideas, Irrational, Tangential Thought Content: Paranoid Memory: Impaired Insight: Poor SI/HI Risk Assessment Past Suicidal Ideation/Attempts Yes Current Suicidal Ideation/Att No Past Homicidal Ideation/Att: No Current Homicidal Ideation/Attempts No Degree of Intent: None Danger To: Self Gravely Disabled: Inability, Lack of Insight, Poor Impulse Control, Poor Judgment Risk Factors: High Anxiety/Distress, SA/MH Hospitalization(s), Poor impulse control, Substance Abuse Lethality Ratin - Conclusion and Recommendations for treatment - and discharge planning Summary: Pt is a 57 yo female presenting to [facility] ED yesterday morning dysregulated and making suicidal statements. Pt brought in by her daughter who reports pt has a bipolar diagnosis but has been off her medications for about 1 yr. Family reports pt was found yesterday morning huddled in the corner incontinent and making bizarre non-sensical statements. reports the other night she was walking around the house naked urinating on the floor. Family reports this is the 3rd time pt has been brought to the hospital for an evaluation this past month. Pt has a hx in the early 2000s of inpatient admissions at [facility] and has been seeing Sol Jones [facility] past 10yrs for outpatient therapy. Pt had been stable on medications Sertraline and Fluphenazine for many yrs but when she and moved out of state last yr she wasn't able to connect with a provider thus going off them. Family reports pt has been progressively unstable, manic, dysregulated easily agitated, not sleeping or eating well. Pt makes periodic suicidal statements but no attempts. Pt was evaluated 2 wks ago at [facility] ED and discharged with prescriptions to begin previous medications but pt has been refusing to take them. Pt reports sadness related to of daughter 11 yrs ago and recent of brother. Pt reports holidays are difficult but she tries to keep going a be happy. Pt currently denies SI/HI; AH/VH. Pt reports smoking cannabis and cigarettes daily and admits to 2x/wk etoh use. Pt reports she has been diagnosed bipolar in the past but doesn't believe it. Pt presents as alert, anxious and OX3. Pt appears disheveled with strong body odor. Pt speech is pressured and thoughts are tangential and disorganized. Pt presents with poor insight and judgement. Pt meets criteria for inpatient psychiatric admission. Pt initially opposed admission but after further conversation with her signed voluntary admission paperwork.>>>>Dwain HENRYW
--- NOTE | 2017-07-17 11:35 | SOCIAL WORKER PROG NOTE PSYCH ---
Social Work Progress Note Progress Note Cassy from [facility] called [phone] ext. [phone]. She wanted more clinical info, which was given to obtain authorization. Auth for inpatient admission was rec'd from 07/15/17- 07/22/17 with review on 07/22. Authorization # [id number]. Angela remains focused on discharge, stating she has been ready to leave and is just waiting for someone to tell her. I reiterated that she is not discharging today and that we will evaluate that tomorrow. She stated she wasn' t trying to fight about it and is just trying to "go with the flow." She feels things are just out of her control at this point and she has to accept that. Affect appeared sad, but not tearful. She stated she was homesick. She had no socks on her feet. She stated she had an "accident" and needed to wash her clothes. She then got up and headed to the dryer to get her clothes out. Thoughts seem disorganized and tangential.
--- NOTE | 2017-07-17 11:52 | CP SOUTH PROGRESS NOTE PSYCH ---
Psych (Inpt) Progress Note Progress Note Patients progress reviewed in multidisciplinary meeting 57-year-old white female who presented to [facility]'s emergency room at the behest of her daughter, the patient believes that she doesn't need to be here and does not acknowledge any mental health issues, patient wanted to be discharged, reportedly was stable on medications for several years but has not been on medications and since the spring she had been gradually deteriorating over the past few months Mental Status Examination: The patient was steady in her gait, denied incontinence (but nurses reported she was), she was found incontinent by nurses this morning, marginally cooperative, increased psychomotor activity, normal, behavior, bizarre and regressed, quality of speech, talkative, affect euthymic, denied feeling depressed, denied suicidal Ideation, denied Homicidal Ideation, denied hallucinations, denied paranoid/ Delusional Material, The patient was suspicious of her daughter, difficulties with thought organization, the patient had difficulty with thought organization, poor insight, poor judgment, oriented to time, place, and person, seems to have difficulty with attention and concentration and information processing, no signs of short-term memory dysfunction, average intellectual functioning Impression and Plan: The patient is a 57-year-old white woman who was brought to the emergency room because his daughter found her incontinent and called up in a ball in a corner. Past history suggests the presence of a psychotic disorder she has been off medications for several months she presents in a disorganized thought and behavior DSM 5 Diagnoses: Unspecified psychotic disorder Cannabis use disorder Nicotine use disorder Treatment Plan: Continue Inpatient psychiatric care with 15 minute checks, D/C one-to-one supervision Continue nursing assessments once a shift for safety Increase fluphenazine (Prolixin) to 2.5 mg QHS Patient will be seen daily by the [facility]Hu[facility] to reevaluate medications The patient will be encouraged to attend group therapy activities therapy and milieu therapy
[2017-07-17 12:24] VITALS: BP 172/79
[2017-07-17 16:13] VITALS: BP 111/57
[2017-07-17 19:53] VITALS: BP 114/62
[2017-07-18 08:13] VITALS: BP 129/75
[2017-07-18] MEDS ORDERED: FLUPHENAZINE H PO (10:53)
[2017-07-18] MEDS ORDERED: NICOTINE PATCH1 EAC2 TOP (10:53)
[2017-07-18] MEDS ORDERED: ATIVAN1 M1 PO (10:53)
--- NOTE | 2017-07-18 11:26 | CP SOUTH PROGRESS NOTE PSYCH ---
Psych (Inpt) Progress Note Progress Note The multidisciplinary treatment team discussed patients progress and treatment plan Summary: 57-year-old white female who presented to [facility]'s emergency room at the behest of her daughter, the patient believes that she doesn't need to be here and does not acknowledge any mental health issues, patient wanted to be discharged, reportedly was stable on medications for several years but has not been on medications and since the spring she had been gradually deteriorating over the past few months Mental Status Examination: Angela's 3 days letter was up today and she refused to rescind it. Angela was marginally cooperative, but calm and polite. She showed normal psychomotor activity today, no bizarre or regressed behaviors. She was not talkative, nor pressured, just ruminating about leaving. She denied feeling depressed, denied suicidal ideation, denied homicidal ideation, and denied hallucinations. She denied feeling paranoid. There were no delusions. She seemed to have less difficulty with thought organization, She was oriented to time, place, and person, seems to have difficulty with attention and concentration, no signs of short-term memory dysfunction, Assessment: 57-year-old white woman who was brought to the emergency room because his daughter found her incontinent and called up in a ball in a corner. Past history suggests the presence of a psychotic disorder she has been off medications for several months she presents in a disorganized thought and behavior DSM 5 Diagnoses: Unspecified psychotic disorder Cannabis use disorder Nicotine use disorder Treatment Plan: Discharge Home as the team did not feel strongly about petitioning the court to extend her stay please see discharge summary for discharge medications
--- NOTE | 2017-07-18 12:02 | DISCHARGE SUMMARY REPORT-PSYCH ---
Visit Information Visit Dates/Diagnosis' Admission Date: 07/15/17 Discharge Date: 07/18/17 Reason for Admission: The patient was admitted after her daughter found her curled up in a ball in a corner and incontinent Psy Discharge Primary Diag: Bipolar Disorder Hospital Course Significant Lab Findings: Urine toxicology was positive for cannabis. Otherwise the laboratory work was essentially normal Course Complications: No complications Consultations: The patient was seen by Dr. Julee Yao MD on 07/15/2017 for an admission history and physical examination. Dr. Yao noted the patient's constipation and incontinence. She recommended adding MiraLAX for constipation and to follow-up with Dr. Arnett for her incontinence. It is noted that the patient had an implanted neural stimulator placed. The patient was also noted to have glaucoma, otherwise physically healthy Allergies: Coded Allergies: meloxicam (Intermediate, ITCH 11/14/16) naproxen (From ALEVE) (Intermediate, ITCH 03/31/17) Hospital Course/TX Response: The patient presented to the emergency department on July 15 and she was admitted that afternoon I saw the patient the next day and on July 16 as she was pretty much focused on discharge and nothing else. She very reluctantly agreed to take fluphenazine which was prescribed several months to more than a year ago and she hasn't been compliant with it for several months at least. The patient signed a three-day letter saying that she wants to be discharged. She did take the low-dose of fluphenazine at that time it was very slowly increased to 2.5 mg at bedtime by the time of her discharge. On the unit the patient was not hostile or belligerent or agitated she was observed by the nursing staff to have some disorganization in behavior as well as thoughts. The incontinence continues, however it seems that it has legitimate organic reasons and not regressed behavior. The psychiatrist, the social scientist, and the nursing staff tried to dissuade the patient from insisting on being discharged and to rescind here her three-day letter, but she was adamant against that. The treatment team did not feel strongly about the patient leaving and therefore it was was decided not to petition the court to keep the patient against her will at this point Summary: 57-year-old white female who presented to [facility]'s emergency room at the behest of her daughter, the patient believes that she doesn't need to be here and does not acknowledge any mental health issues, patient wanted to be discharged, reportedly was stable on medications for several years but has not been on medications and since the spring she had been gradually deteriorating over the past few months Mental Status Examination: Angela's 3 days letter was up today and she refused to rescind it. Angela was marginally cooperative, but calm and polite. She showed normal psychomotor activity today, no bizarre or regressed behaviors. She was not talkative, nor pressured, just ruminating about leaving. She denied feeling depressed, denied suicidal ideation, denied homicidal ideation, and denied hallucinations. She denied feeling paranoid. There were no delusions. She seemed to have less difficulty with thought organization, She was oriented to time, place, and person, seems to have difficulty with attention and concentration, no signs of short-term memory dysfunction, Assessment: 57-year-old white woman who was brought to the emergency room because his daughter found her incontinent and called up in a ball in a corner. Past history suggests the presence of a psychotic disorder she has been off medications for several months she presents in a disorganized thought and behavior DSM 5 Diagnoses: Unspecified psychotic disorder Cannabis use disorder Nicotine use disorder Treatment Plan: Discharge Home as the team did not feel strongly about petitioning the court to extend her stay please see discharge summary for discharge medications Discharge HBIPS - Tobacco Use Treatment Offered Post DC Medications Offered: Script Given-See Med List Post DC Tobacco Treatment Plan: Refused Tobacco Tx Pgm - EtOH/Drug Use D/O Treatment Offered Post DC Medications Offered: NA-No EtOH/Drug Use D/O Post DC EtOH/SubAbuse TX Plan: NA-No EtOH/Drug Use D/O Metabolic Screening - Screen if on a Neuroleptic Medication - Metabolic screening should include: - Blood Pressure, BMI, Glucose or Hgb A1c, & a - Lipid profile from within the past 365 days. Discharge Instructions General Discharge Information Multiple Neuroleptics: ([X]) Not Applicable OR Document below three failed attempts at monotherapy, or a plan to taper to monotherapy, or augmentation of Clozapine. () Discharge Diet Regular Discharge Activity Normal DC Disposition: Home Referrals Ordered Referrals Provider Referral 07/21/17 For Groups: Outpatient Psychiatry [facility] intake appt. 07/21/17 1:30pm with Ita K. [address] [place] [address] Provider Referral 08/12/17 For Groups: Outpatient Psychiatry [facility] appt. with Dr. Armenta 08/12/17 8am [address] [place] [address] Prescriptions Stop taking the following medications: Sertraline HCl (Sertraline HCl) 25 MG TABLET ORAL DAILY Fluphenazine HCl (Fluphenazine HCl) 1 MG TABLET ORAL Every night Continue taking these medications: Olopatadine HCl (Pataday) 0.2 % DROPS 1 Drop In the eye DAILY as needed for ALLERGIES Comments: Last Taken:NOT USED IN THE HOSPITAL Time: Latanoprost (Latanoprost) 0.005 % DROPS 1 Drop In the eye Every night Instructions: BOTH EYES Comments: Last Taken:NOT USED IN THE HOSPITAL Time: Cholecalciferol (Vitamin D3) (Vitamin D) (Unknown Strength) CAPSULE Unknown Dose ORAL DAILY Comments: Last Taken:NOT GIVEN IN THE HOSPITAL Time: Vitamin E Mixed (Vitamin E) (Unknown Strength) TABLET Unknown Dose ORAL DAILY Comments: Last Taken:NOT GIVEN IN THE HOSPIATL Time: Melatonin (Melatonin) 3 MG TABLET 1 Tablet ORAL as needed for SLEEP Comments: Last Taken:NOT GIVEN IN THE HOSPIAL Time: Start taking the following new medications: Nicotine (Nicotine Patch) 14 MG/24 HOUR PATCH.TD24 14 Milligram On the skin DAILY Qty = 14 Refills = 1 Comments: Last Taken:07/15/17 Time:1700 Fluphenazine HCl (Fluphenazine HCl) 2.5 MG TABLET 2.5 Milligram ORAL AT BEDTIME Qty = 30 No Refills Comments: Last Taken:07/17/17 Time:2200 LORazepam (Ativan) 1 MG TAB 1 Milligram ORAL AT BEDTIME as needed for Insomnia Qty = 30 No Refills Comments: Last Taken:TO START THIS DOSE AT HOME Time: Copies To: Outpatient Psychiatry
--- NOTE | 2017-07-18 12:43 | SOCIAL WORKER PROG NOTE PSYCH ---
Social Work Progress Note Progress Note Dr. Rios and I attempted to have Angela rescind her 3 day paper and stay through Friday, but she was not in agreement. We tried to call her Randy to see what his thoughts were. He did not answer the call. Left a voicemail. I offered to set her up with Intensive Outpatient. She refused, stating she had her own plans and things to work on. We let her know we would inform her of our decision for discharge by early afternoon. Discussed with the team. Despite the team's feeling she could benefit from a couple more days in the hospital, we don't feel she is a safety risk at this time and we would not want to file with Probate. Her Randy called. Informed him of the decision to discharge her today. He stated he would pick her up around 12-12:30pm I scheduled her a [facility] appt. for intake with Ita Barrios on Friday07/21/17 @1 :30pm. Medication management is scheduled with Dr. Armenta 08/12 8am.
--- NOTE | 2017-07-18 12:44 | SOCIAL WORKER PROG NOTE PSYCH ---
Social Work Progress Note Faxed Referral(s) Referred To: [facility]PS Transition of Care Documents sent: Health Summary Faxed to: [facility] Fax #: [phone] Faxed by: Jodi Mcnamara Date faxed: 07/18/17 Time Faxed: [phone]
== END 2017-07-18 12:15 | DRG 885 ==
LOC: ERH 10:51 → EDBD 07-15 10:48 → CP SOUTH 07-15 10:48 → ERHI 07-15 10:48 → CP SOUTH 07-15 13:34
PROVIDERS: Physician Assistant
DX: F31.9 Bipolar disorder, unspecified (principal)
CPT/HCPCS: 80307; 81001; G0480

== ENCOUNTER 2017-08-09 16:36 | Inpatient (IN) | payer OTHER ==
[~2017-08-09] VITALS: Ht 157.4 cm; Wt 46.5 kg
[~2017-08-09 16:36] MED LIST changes: +ATIVAN1 M1 PO; +FLUPHENAZINE H PO; +FLUPHENAZINE HCL1 M1 PO; +NICOTINE PATCH1 EAC2 TOP; +SERTRALINE HCL25 MG PO
--- NOTE | 2017-08-09 16:44 | ED PSYCHIATRIC COMPLAINT ---
See Addendum History of Present Illness General Chief Complaint: Psychiatric Related Complaint Stated Complaint: BIBA FOR +SI Source: patient, police Exam Limitations: refusing to give history Vital Signs & Intake/Output Vital Signs & Intake/Output Vital Signs Date Time Temp Pulse Resp B/P B/P Pulse O2 O2 Flow FiO2 Mean Ox Delivery Rate 08/11 2326 97.0 79 19 96/67 96 Room Air 08/11 1846 97.5 59 18 100/70 100 Room Air 08/11 1509 99.1 70 18 110/62 99 Room Air 08/11 1240 76 16 98/67 96 Room Air 08/11 0947 98.0 68 16 124/70 99 Room Air 08/11 0743 97.7 74 18 128/74 100 Room Air 08/11 0507 97.6 66 20 120/61 100 Room Air 08/11 0245 71 16 99 Room Air 08/11 0028 98.2 61 16 102/64 99 Room Air Allergies Coded Allergies: meloxicam (Intermediate, ITCH 11/14/16) naproxen (From ALEVE) (Intermediate, ITCH 03/31/17) Reconcile Medications Cholecalciferol (Vitamin D3) (Vitamin D) (Unknown Strength) CAPSULE (Unknown Dose) PO DAILY SUPPLEMENT (Reported) Fluphenazine HCl 2.5 MG TABLET 2.5 MG PO AT BEDTIME thought disorder Latanoprost 0.005 % DROPS 1 GTT OPH QPM GLAUCOMA (Reported) BOTH EYES LORazepam (Ativan) 1 MG TAB 1 MG PO AT BEDTIME PRN Insomnia Melatonin 3 MG TABLET 1 TAB PO PRN SLEEP (Reported) Nicotine (Nicotine Patch) 14 MG/24 HOUR PATCH.TD24 14 MG TOP DAILY smoking cessation Olopatadine HCl (Pataday) 0.2 % DROPS 1 GTT OPH DAILY PRN ALLERGIES (Reported ) Vitamin E Mixed (Vitamin E) (Unknown Strength) TABLET (Unknown Dose) PO DAILY SUPPLEMENT (Reported) Triage Nurses Notes Reviewed? yes Onset: Abrupt Duration: week(s): (1), constant, continues in ED, getting worse Timing: single episode today Severity: moderate, severe Associated Symptoms: anxiety, suicidal ideation LMP (ages 10-50): unknown : No Patient currently breastfeeds: No HPI: 57-year-old female past medical history of bipolar disorder and depression brought in by ambulance on a police paper for evaluation of suicidal ideation and medication noncompliance. Patient was recently admitted to Inpatient Psychiatry. Since her discharge she has not been taking her meds. According to the police paper patient has been not allow her to sleep and acting erratically at home. She also threatened to hurt herself by drinking rubbing alcohol. Patient refuses to answer any questions here. She denies everything. She denies any suicidal ideation depression or anxiety. States the entire thing is a lie. (Lawrence Hare) Past History Travel History Traveled to [place] past 21 day No Medical History Any Pertinent Medical History? 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 No (Lawrence Hare) Review of Systems Review of Systems Constitutional: Reports: no symptoms. EENTM: Reports: no symptoms. Respiratory: Reports: no symptoms. Cardiovascular: Reports: no symptoms. GI: Reports: no symptoms. Genitourinary: Reports: no symptoms. Musculoskeletal: Reports: no symptoms. Skin: Reports: no symptoms. Neurological/Psychological: Reports: see HPI, anxiety. Hematologic/Endocrine: Reports: no symptoms. Immunologic/Allergic: Reports: no symptoms. All Other Systems: Reviewed and Negative (Lawrence Hare) Physical Exam Physical Exam General Appearance: well developed/nourished, alert, awake, anxious, moderate distress, belligerent, agitated Head: atraumatic, normal appearance Eyes: Bilateral: normal appearance. Ears, Nose, Throat: hearing grossly normal Neck: normal inspection Respiratory: no respiratory distress Neurological/Psychiatric: awake, agitated, alert, anxious Appearance/Memory/Insight: impaired insight Behavoir/Eye Contact/Speech: belligerent, uncooperative, increased rate of speech, refused to answer Thoughts/Hallucinations: delusions, incoherent, obsessive, paranoid Skin: intact, normal color, warm/dry SAD PERSONS SAD PERSONS Response Value Age <19 or >45 years? yes 1 Rational Thinking Loss? yes 2 Social Support? has support 0 Total 3 SAD PERSONS Done? yes (Lawrence Hare) Progress Differential Diagnosis: dementia, drug intoxication, drug overdose, drug withdrawal, bipolar disorder, psychosis Plan of Care: Current Medications Sig/Howard Start time Last Medication Dose Stop Time Status Admin Potassium Chloride 10 MEQ ONCE ONE 08/11 1745 CAN (K-Dur) 08/11 174 Fluphenazine HCl 2.5 MG AT BEDTIME 08/10 2200 UNVr 08/11 (Prolixin 2.5 MG 2326 Tablet) Lorazepam 1 MG AT BEDTIME PRN 08/10 1515 AC (Ativan) Melatonin 3 MG QPM PRN 08/10 1515 UNVr (Melatonin) Patient seen and evaluated. She currently refuses to answer most questions. She refuses any physical exam. She denies everything stating that this is almost a wide. Most of the history is obtained through the police paper. Patient suddenly became very aggressive requesting to leave. She was attempted to be redirected multiple times. She became aggressive toward staff flailing her arms around him was hitting people in the face. Security was called patient was placed in 4. restraints and medicated with IM Haldol IM Ativan IM Benadryl. Patient is resting comfortably after medications. Restraints were removed patient agrees to cooperate labs are drawn. Patient will see crisis in the morning. Blood work is within normal limits. Patient's signed out to Gabriela Horton MD pending re-eval in morning by crisis. She is resting calmly throughout the night. (Lawrence Hare) 1:59 am patient signed out to me by Lawrence, pending crisis reevalutaion. (Gabriela Horton MD) Hand-Off Endorsed To: Gabriela Horton MD Endorsed Time: 013 Pending: consult (crisis) (Lawrence Hare) Hand-Off Endorsed To: Dallin Dejesus MD Endorsed Time: 0700 Pending: consult (Gabriela Horton MD) Hand-Off Endorsed To: Miguel Haddad MD Endorsed Time: 190 Pending: other (bed search) (Dallin Dejesus MD) Hand-Off Endorsed To: Kike Reno DO Endorsed Time: 07 Pending: other (Miguel Haddad MD) Hand-Off Endorsed To: Dallin Dejesus MD Endorsed Time: 0700 Pending: other (Ricco POTTER,Shelton Tobin) Departure Departure Disposition: STILL A PATIENT Condition: Stable Referrals: Ashwin Begum DO (PCP/Family) Departure Forms: Customer Survey General Discharge Information (Lawrence Hare) Departure Clinical Impression Primary Impression: Suicide ideation Secondary Impressions: Cannabis abuse PA/SCANNING TECH Co-Sign Statement Statement: ED Attending supervision documentation- [X] I saw and evaluated the patient. I have also reviewed all the pertinent lab results and diagnostic results. I agree with the findings and the plan of care as documented in the PA's/SCANNING TECH's documentation. [X] I have reviewed the ED Record and agree with the PA's/SCANNING TECH's documentation. [] Additions or exceptions (if any) to the PAs/SCANNING TECH's note and plan are summarized below: [] (Clifford POTTER,Gabriela) PA/SCANNING TECH Co-Sign Statement Statement: ED Attending supervision documentation- [] I saw and evaluated the patient. I have also reviewed all the pertinent lab results and diagnostic results. I agree with the findings and the plan of care as documented in the PA's/SCANNING TECH's documentation. [] I have reviewed the ED Record and agree with the PA's/SCANNING TECH's documentation. [] Additions or exceptions (if any) to the PAs/SCANNING TECH's note and plan are summarized below: [] (Dallin Dejesus MD) PA/SCANNING TECH Co-Sign Statement Statement: ED Attending supervision documentation- [] I saw and evaluated the patient. I have also reviewed all the pertinent lab results and diagnostic results. I agree with the findings and the plan of care as documented in the PA's/SCANNING TECH's documentation. [x] I have reviewed the ED Record and agree with the PA's/SCANNING TECH's documentation. [] Additions or exceptions (if any) to the PAs/SCANNING TECH's note and plan are summarized below: [] (Boo POTTER,Miguel Greenberg) Departure Comments 08/11/18 5:34 PM The patient was signed out to me by Dr. Haddad at 7 AM. She has a history of bipolar disorder. She complains of depression with suicidal ideation. She is pending disposition by crisis. The patient will be signed out to Dr. Chacko at 7 PM. (Kike Reno DO) [] (Boo POTTER,Miguel Greenberg)
--- NOTE | 2017-08-09 19:23 | ED PSY CRISIS COLLATERAL NOTE ---
Collateral Note Collateral Note Family/Inform/Micha Contacts: Spoke to patient's Randy Fishman . Randy states the patient was discharged from [facility] a few weeks ago after a 3 day stay. Randy states the patient has not been taking here medication. He states "She has been playing games, hiding it under her tongue, and hiding the bottle all together." Randy reports the patient has not seen her therapist or followed up with the psychiatrist either. Randy states the last couple of nights the patient has became increasingly aggressive calling him names and hitting his back with her elbow when they are in bed because he will not buy her alcohol. Randy states the patient becomes angry and states "Why am I here? I do not want to be here. You all would be better without me here." Randy states the patient motioned to drink rubbing alcohol. He states "She never had it in her hand, but she was going for it." Randy states the patient has been exhibiting bizarre and unstable behavior and mood from "aggressive to child like". For example, walking around the house "pierce naked". Randy states he cannot trust the patient to be home alone and has his step son and other relatives check in on her when he is at work. Randy states that he believes the patient needs more than three days of inpatient treatment and a discharge plan to assure she follows up with therapy and is medication compliant when she discharges. Otherwise, he feels that she will just decompensate again.
[2017-08-09 20:26] LABS: ABSOLUTE BASOPHIL COUNT 0 /CUMM (0.0-0.2); ABSOLUTE EOSINOPHIL COUNT 0.1 /CUMM (0.0-0.7); ABSOLUTE GRANULOCYTE CT 4.8 /CUMM (1.4-6.5); ABSOLUTE LYMPH COUNT 3.8 /CUMM (1.2-3.4); ABSOLUTE MONOCYTE COUNT 0.5 /CUMM (0.10-0.60); BASOPHIL % 0.5 % (0.0-2.0); EOSINOPHIL % 1.2 % (0-5); GRANULOCYTE % 51.6 % (42.2-75.2); HEMATOCRIT 41.6 % (37-47); MEAN CORPUSCULAR HGB 32.6 PG (27.0-31.0); MEAN CORPUSCULAR HGB CONC 33.3 G/DL (33.0-37.0); MEAN PLATELET VOLUME 7.6 FL (7.4-10.4); PLATELET COUNT 296 /CUMM (130-400); RED BLOOD CELL CT 4.24 /CUMM (4.20-5.40); WHITE BLOOD CELL COUNT 9.3 /CUMM (4.8-10.8)
--- NOTE | 2017-08-10 08:37 | ED PSYCH CRISIS CONSULTATION ---
See Addendum Crisis Consult Basic Assessment Date of Consult: 08/10/17 Responsible Person/Accompanied By: self Insurance Authorization: Insurance #1: Insurance name: CHARLI Phone number: Policy number: [id number] Group number: [id number] Authorization number: ED Provider: Patient's ED Provider: Gabriela Horton MD Primary Care Physician: Patient's PCP: Ashwin Begum DO PCP's Current Psychiatrist: none Chief Complaint: Psychiatric Related Complaint Patient's Quote: "Are we done yet? I answered all your questions. I just need to go home." Present Illness: Pt is a 57yo female with of Bipolar Disorder who was brought to the ED on a PEER after threatening to drink rubbing alcohol. Per PEER: "Omkar is not eating or using proper hygiene. Omkar is not letting sleep. Constantly waking him up. omkar's daughter 10 years ago and Omkar continues to relive the . omkar is not continuing to take medication. Omkar threatened to drink rubbing alcohol and had to take the bottle away." While in the Emergency Department, pt has been uncooperative refusing to answer most questions asked by staff. Last night she became agitated and required restraints and sedation. Pt was recently discharged from inpatient Psych treatment at [facility] on Jul 18 and has not followed up with her out patient treatment as she has missed 2 scheduled intakes. Her family reports that she is not taking her meds. Her Randy Harp reports she is up all night and wakes him several times through out the night elbowing him in the back and calling him names. She walks around the home naked. She has made suicidal statements such as"Why am i here. You guys would be better off with out me." She has been exhibiting poor insight into her need for treatment, poor judgment and poor impulse control as she attempted to drink a bottle of rubbing alcohol when her family refused to buy her alcohol. She has barley been sleeping , eating, or grooming. She presents as unkempt and disheveled. Upon Crisis eval she presents as irritable and dismissive. She has no insight on what lead her to the ED and denies all the concerns that lead her to be sent to the ED. When asked why she thinks she is in the ED she states "Something about pushing someone off of the roof, but I did not do it." After minimally responding to few questions in a irritable dismissive manner pt expressed. "I've answered all your questions now get me my clothes so I can go home. I have an appointment to get to tomorrow with the psychiatrist." therefore evaluation was limited as patent was not willing to participate. She continues to be fixated on wanting to leave. Case reviewed with Dr. De La Cruz of Psychiatry and patient requires inpatient psych treatment and has been placed on a PEC. Patient's Address: [address] [place] [address] Other Phone Number: Who Do You Live With? Spouse Family/Informants Interviewed: Allergies - Coded Allergies: meloxicam (Intermediate, ITCH 11/14/16) naproxen (From ALEVE) (Intermediate, ITCH 03/31/17) Current Medications - Scheduled Medications Cholecalciferol (Vitamin D3) (Vitamin D) (Unknown Strength) CAPSULE (Unknown Dose) PO DAILY SUPPLEMENT (Reported) Entered as Reported by Herminia Esteban on 06/06/17 1614 Fluphenazine HCl 2.5 MG TABLET 2.5 MG PO AT BEDTIME thought disorder #30 TAB Prescribed by Cheikh Rios MD on 07/18/17 Latanoprost 0.005 % DROPS 1 GTT OPH QPM GLAUCOMA (Reported) Entered as Reported by Pam Scott on 11/14/16 0914 Nicotine (Nicotine Patch) 14 MG/24 HOUR PATCH.TD24 14 MG TOP DAILY smoking cessation #14 PATCH Prescribed by Cheikh Rios MD on 07/18/17 Vitamin E Mixed (Vitamin E) (Unknown Strength) TABLET (Unknown Dose) PO DAILY SUPPLEMENT (Reported) Entered as Reported by Herminia Esteban on 06/06/17 1614 Scheduled PRN Medications LORazepam (Ativan) 1 MG TAB 1 MG PO AT BEDTIME PRN Insomnia #30 TAB Prescribed by Cheikh Rios MD on 07/18/17 Melatonin 3 MG TABLET 1 TAB PO PRN SLEEP (Reported) Entered as Reported by Herminia Esteban on 06/06/17 1614 Olopatadine HCl (Pataday) 0.2 % DROPS 1 GTT OPH DAILY PRN ALLERGIES (Reported ) Entered as Reported by Pam Scott on 11/14/16 0914 Laboratory Results: Laboratory Tests 08/09/17 2017: Anion Gap 13, Estimated GFR > 60, BUN/Creatinine Ratio 23.3, Glucose 86, Calcium 9.4, Total Bilirubin 0.8, AST 21, ALT 34, Alkaline Phosphatase 47, Total Protein 7.1, Albumin 4.6, Globulin 2.5, Albumin/Globulin Ratio 1.8, CBC w Diff NO MAN DIFF REQ, RBC 4.24, MCV 98.0, MCH 32.6 H, MCHC 33.3, RDW 14.0, MPV 7.6, Gran % 51.6, Lymphocytes % 40.9, Monocytes % 5.8, Eosinophils % 1.2, Basophils % 0.5, Absolute Granulocytes 4.8, Absolute Lymphocytes 3.8 H, Absolute Monocytes 0.5, Absolute Eosinophils 0.1, Absolute Basophils 0, Serum Alcohol < 10.0 08/09/17 1715: Urine Opiates Screen < 100.00, Methadone Screen < 40, Barbiturate Screen < 60, Ur Phencyclidine Scrn < 6.00, Amphetamines Screen < 100, U Benzodiazepines Scrn < 85, Urine Cocaine Screen < 50, Urine Cannabis Screen > 80.00 H, Urine Color YEL, Urine Clarity CLEAR, Urine pH 7.0, Ur Specific [place] 1.015, Urine Protein NEG, Urine Ketones NEG, Urine Nitrite NEG, Urine Bilirubin NEG, Urine Urobilinogen 0.2, Ur Leukocyte Esterase NEG, Ur Microscopic SEDIMENT EXAMINED, Urine RBC 3-5, Urine WBC 1-3 H, Ur Epithelial Cells MOD H, Urine Bacteria FEW H, Urine Mucus RARE, Urine Hemoglobin SMALL H, Urine Glucose NEG (Shanique HENRYW,Mily) Addendum Addendum Pt reassessed this evening, and continues to meet criteria for inpatient hospitalization, she was cooperative in this moments, and offered "no one has come for me yet". Assured her that Friday, would bring more opportunity to continue the bed search. Pt was tired. 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 Past Surgical History Surgical History: appendectomy, cholecystectomy Psychosocial History Strengths/Capabilities: very supportive family Physical Limitations (Interventions): none observed, patient mentioned having an implant and son stated it was for incontenese Psychiatric Treatment History Psych Treatment Psychiatric Treatment Yes Inpatient Treatment Yes Outpatient Treatment No Location of Treatment [facility] Reason for Treatment Bipolar Dates of Treatment Jul 2017 Response to Treatment no follow through Diagnosis by History: Bipolar Disorder Substance Use/Abuse History Drug Use/Abuse Substances Used/Abused Yes Substance Used/Abused Marijuana First Use pt unable to answer Last Used pt unable to answer How much used/taken pt unable to answer How often pt unable to answer For how long pt unable to answer Route of use pt unable to answer Substance Abuse Treatment Substance Abuse Treatment Past Substance Abuse [place] No Inpatient Treatment No Outpatient Treatment No (Mily Bay LCSW) Current Mental Status Mental Status Orientation: Person, Place, Situation Affect: Anxious, Angry, Broad, Inappropriate, Labile, Variable Speech: Evasive, Loud, Pressured Neuro-vegetative: Appetite Decreased, Concentration Poor, Hyperactivity, Sleep Disturbance Appearance Appearance- Dress/Hygiene: unkempt, disheveled Behaviors Thought Process: Disorganized, Flight of Ideas, Irrational, Loose Association Thought Content: Entitled, Obsessions Memory: Impaired Insight: Poor SI/HI Risk Assessment Past Suicidal Ideation/Attempts Yes Current Suicidal Ideation/Att No Past Homicidal Ideation/Att: No Current Homicidal Ideation/Attempts No Degree of Intent: Made Preparations Danger To: Others, Self Gravely Disabled: Inability, Lack of Insight, Poor Impulse Control, Poor Judgment Risk Factors: high anxiety/distress, SA/MH hospitalized, substance abuse, poor impulse control, lack of outcome concern Lethality Ratin PTSD Checklist PTSD Done? pt unable to participate ED Management Sitter: Yes Restraints: No (Mily Bay LCSW) DSM5/PS Stressors/Medical Prob Diagnosis' (DSM 5, Stressors, Medical): F31.9 Bipolar F12.20 Cannabis Use Current GAF: 20 (Mily Bay LCSW) Departure Disposition Psych Medical Clearance Date: 08/10/17 Medically Cleared at: 0830 Time Started: 829 Time Ended: 929 Psychiatrist Consulted: Dr. De La Cruz Date Disposition Established: 08/10/17 Time Disposition Established: 929 Plan for Disposition - Modality: Inpatient Psychiatry Facility: Bed search Rationale for Disposition: Safety and Stabilization Type of IP Admission: PEC Referrals Ashwin Begum DO (PCP/Family) (Shanique LUCIANO,Mily)
--- NOTE | 2017-08-10 15:38 | ED PSYCHIATRIST/APRN CONSULT ---
Psychiatrist/TRAP PULLER ED Consult Assessment and Plan: 57 year old woman with a history of psychosis, in the ER with disorganized, decompensated psychosis since her discharge from [facility] a few weeks ago. She has not been taking meds, hiding the meds, stating she wanted to drink rubbing alcohol, running around the house naked, and aggression at home per her . she told me that her meds were being titrated down. She was medicated in the ER last night, requiring IM medication and restraints. She presented as disorganized but relatively calm, stating she felt depressed because her was not there yet to pick her up. I attempted to explain to her that she would be admitted but continued to fixate on discharge; though she was not actively trying to leave. She was unable to answer many of my questions, saying, I dont know what to tell you as a common answer. MSE: slim, fairly well groomed woman, mild agitation but overall calm. Speech is normal. Mood is irritated and affect is full and reactive. Her thinking is concrete and focused on leaving. She has no awareness of her admission despite being told several times. Her thought content is free of thoughts to harm self or others. No gross delusions are elicited but overall her thinking is disorganized. her insight to active sx is absent and judgment has been poor. A: Address her active psychotic decompensation with admission to IP bed and resuming her medications. She would need an increase in her antipsychotic but did not want to consider any med changes due to belief she was going home and had her meds titrated down.
--- NOTE | 2017-08-11 17:34 | ED PSYCHIATRIST/APRN CONSULT ---
Psychiatrist/MANAGER ADVERTISING ED Consult Assessment and Plan: Dr. De La Cruz's note reviewed. Crisis workers' notes reviewed. Case discussed with crisis workers. The patient is a 57-year-old white woman with history of bipolar disorder, who was treated on [facility] from 07/15/17 through 07/18/17. Her brief stay related to her having filed a three-day paper. Patient reportedly made comments at home about wanting to ingest rubbing alcohol. She reportedly was walking around the house naked. By report, she has been displaying poor insight and judgment. Patient seen at 5:00 PM. She is a thin white female, standing, dressed in blue paper scrubs. She is in no acute distress. She is calm and polite but only somewhat cooperative. There is no psychomotor agitation or retardation. Speech is normal in volume, rate and tone. Affect is calm and blunted to flat. She states that her family thinks she is not acting right and they are concerned because she has been sad. Patient reports she misses her daughter, who . She is guarded as to details. Patient maintains that she (the patient) is okay now and can be home. Denies threatening to have drunk rubbing alcohol, dismissing the report as there was a joke around the house about holding a celebration. She minimizes the issue of walking through the house naked. States she is ready to go home and her son could pick her up. Claims she has a therapy appointment tomorrow. Reports mood is anxious at 10/10. Feels sad. Denies feeling hopeless. Feels sort of helpless. Does not want to answer any more questions. I informed her that we are keeping her on a bed search, and she replied that she has a bed at home, and "it's not right." IMPRESSION: Patient apparently decompensated in the context of reported medication non- compliance. Patient maintains she was taking her medications. Bed search continues. We will continue to hold and observe the patient. She will be reassessed tomorrow by sheet metal lay out worker.
--- NOTE | 2017-08-12 13:34 | ED PSYCHIATRIST/APRN CONSULT ---
Psychiatrist/TECHNICAL SUPPORT TECHNICIAN ED Consult Assessment and Plan: Dr. Mora and Dr. De La Cruz's notes were reviewed. The dog warden's notes were reviewed, and the case discussed with crisis workers. Background: a 57-year-old White female with history of bipolar disorder, who was treated on [facility] from 07/15/17 through 07/18/17. Her brief stay related to her having filed a three-day paper. Patient reportedly made comments at home about wanting to ingest rubbing alcohol. She reportedly was walking around the house naked. By report, she has been displaying poor insight and judgment. MSE on 08/12/2017: thin white female dressed in blue paper scrubs, no acute distress, calm and polite wants to do IOP instead of inpatient, somewhat cooperative, no psychomotor agitation or retardation. Speech is normal in volume, rate and tone. Affect is blunted, misses her daughter, guarded , maintains that she is okay now and wants to go home, denied threatening to drink rubbing alcohol, minimizes the issue of walking through the house naked anxious and sad but denies feeling hopeless, or wishing or thinking of suicide Assessment: Suspicion of psychosis vs neurocognitive disorder Recommendations: May not leave AMA Inpatient psychiatric care Resume same medications as per CPS discharge
--- NOTE | 2017-08-12 16:26 | IP CRISIS DIAG ASSESS PSYCH ---
See Addendum Diagnostic Assessment Basic Assessment Insurance Authorization: Insurance #1: Insurance name: CHARLI Phone number: Policy number: [id number] Group number: [id number] Authorization number: [id number] Primary Care Physician: Patient's PCP: Ashwin Begum DO PCP's Patient's Quote: "Are we done yet? I answered all your questions. I just need to go home." Present Illness: Pt is a 57yo female with of Bipolar Disorder who was brought to the ED on a PEER after threatening to drink rubbing alcohol. Per PEER: "Omkar is not eating or using proper hygiene. Omkar is not letting sleep. Constantly waking him up. omkar's daughter 10 years ago and Omkar continues to relive the . omkar is not continuing to take medication. Omkar threatened to drink rubbing alcohol and had to take the bottle away." While in the Emergency Department, pt has been uncooperative refusing to answer most questions asked by staff. Last night she became agitated and required restraints and sedation. Pt was recently discharged from inpatient Psych treatment at [facility] on Jul 18 and has not followed up with her out patient treatment as she has missed 2 scheduled intakes. Her family reports that she is not taking her meds. Her Randy Harp reports she is up all night and wakes him several times through out the night elbowing him in the back and calling him names. She walks around the home naked. She has made suicidal statements such as"Why am i here. You guys would be better off with out me." She has been exhibiting poor insight into her need for treatment, poor judgment and poor impulse control as she attempted to drink a bottle of rubbing alcohol when her family refused to buy her alcohol. She has barley been sleeping , eating, or grooming. She presents as unkempt and disheveled. Upon Crisis eval she presents as irritable and dismissive. She has no insight on what lead her to the ED and denies all the concerns that lead her to be sent to the ED. When asked why she thinks she is in the ED she states "Something about pushing someone off of the roof, but I did not do it." After minimally responding to few questions in a irritable dismissive manner pt expressed. "I've answered all your questions now get me my clothes so I can go home. I have an appointment to get to tomorrow with the psychiatrist." therefore evaluation was limited as patent was not willing to participate. She continues to be fixated on wanting to leave. Case reviewed with Dr. De La Cruz of Psychiatry and patient requires inpatient psych treatment and has been placed on a PEC. Patient's Address: [address] [place] [address] Other Phone Number: Who Do You Live With? Spouse Feel Safe Where You Live? Yes Feel Safe in Your Relationship Yes Marital Status: Do You Have Children? Yes Primary Language? Lao Language(s) Spoken At Home: Lao, Indonesian Family/Informants Interviewed: Allergies - Coded Allergies: meloxicam (Intermediate, ITCH 11/14/16) naproxen (From ALEVE) (Intermediate, ITCH 03/31/17) Current Medications - Scheduled Medications Cholecalciferol (Vitamin D3) (Vitamin D) (Unknown Strength) CAPSULE (Unknown Dose) PO DAILY SUPPLEMENT (Reported) Entered as Reported by Herminia Esteban on 06/06/171613 Fluphenazine HCl 2.5 MG TABLET 2.5 MG PO AT BEDTIME thought disorder #30 TAB Prescribed by Cheikh Rios MD on 07/18/17 Last Taken: At an unknown date and time Latanoprost 0.005 % DROPS 1 GTT OPH QPM GLAUCOMA (Reported) Entered as Reported by Pam Scott on 11/14/16913 Last Taken: At an unknown date and time Scheduled PRN Medications LORazepam (Ativan) 1 MG TAB 1 MG PO AT BEDTIME PRN Insomnia #30 TAB Prescribed by Cheikh Rios MD on 07/18/17 Last Taken: At an unknown date and time Melatonin 3 MG TABLET 1 TAB PO PRN SLEEP (Reported) Entered as Reported by Herminia Esteban on 06/06/17 161 Last Taken: At an unknown date and time Olopatadine HCl (Pataday) 0.2 % DROPS 1 GTT OPH DAILY PRN ALLERGIES (Reported ) Entered as Reported by Pam Scott on 11/14/16913 Consequences of Psych Med Use: pt has been non-compliant with medications since discharge from [facility] Toxicology Screen Completed? Yes Results: positive Symptoms of Use: daily cannabis use Past History Past Surgical History Surgical History none Abuse/Trauma History Trauma History/Current Trauma: emotional Psychosocial History Strengths/Capabilities: very supportive family Physical Limitations (Interventions): none observed, patient mentioned having an implant and son stated it was for incontenese Psychiatric Treatment History Psych Treatment Psychiatric Treatment Yes Inpatient Treatment Yes Outpatient Treatment No Location of Treatment [facility] Reason for Treatment Bipolar Dates of Treatment Jul 2017 Response to Treatment no follow through Diagnosis by History: Bipolar Disorder Risk Factors: high anxiety/distress, SA/MH hospitalized, substance abuse, poor impulse control, lack of outcome concern Substance Use/Abuse History Drug Use/Abuse minimum 12mo Hx Substances Used/Abused Yes Substance Used/Abused Marijuana First Use pt unable to answer Last Used pt unable to answer How much used/taken pt unable to answer How often pt unable to answer For how long pt unable to answer Route of use pt unable to answer Substance Abuse Treatment Substance Abuse Treatment Past Substance Abuse [place] No Inpatient Treatment No Outpatient Treatment No Sexual History Sexual Concerns: none Education History Highest Level of Education: bachelor's degree Preferred Learning Style: visual, auditory, experiential Current Mental Status Mental Status Orientation: Person, Place, Situation Affect: Anxious, Angry, Broad, Inappropriate, Labile, Variable Speech: Evasive, Loud, Pressured Neuro-vegetative: Appetite Decreased, Concentration Poor, Hyperactivity, Sleep Disturbance Appearance Appearance- Dress/Hygiene: unkempt, disheveled Behaviors Thought Process: Disorganized, Flight of Ideas, Irrational, Loose Association Thought Content: Entitled, Obsessions Memory: Impaired Insight: Poor SI/HI Risk Assessment - Minimum 6mo History- Past Suicidal Ideation/Attempts Yes Current Suicidal Ideation/Att No Past Homicidal Ideation/Att: No Current Homicidal Ideation/Attempts No Degree of Intent: Made Preparations Danger To: Others, Self Gravely Disabled: Inability, Lack of Insight, Poor Impulse Control, Poor Judgment Risk Factors: high anxiety/distress, SA/MH hospitalized, substance abuse, poor impulse control, lack of outcome concern Lethality Ratin Needs/Init TX Plan/Goals: Psychiatric Evaluation Medication assessment Individual, group and family meeting coordinated discharge planning AUDIT-C Questionnaire: AUDIT-C Questionnaire: Response Value ETOH use in the past year 2-4 times/week 3 # drinks typical/day 3 or 4 1 6 or > drinks per occasion Weekly 3 Total 7 DSM5/PS Stressors/Medical Prob Diagnosis' (DSM 5, Stressors, Medical): F31.9 Bipolar F12.20 Cannabis Use Current GAF: 20
[2017-08-12 17:29] VITALS: BP 101/66
[2017-08-12] MEDS ORDERED: VITAMIN E100 UNI1 (17:47)
[2017-08-12 20:08] VITALS: BP 113/52
--- NOTE | 2017-08-12 20:51 | PN- Gen Med ---
Assessment/Plan Assessment: 57 YO F PMH of bipolar disorder and depression brought in by ambulance on a police paper for evaluation of suicidal ideation and medication noncompliance. Patient was recently admitted to Inpatient Psychiatry and has been noncompliant since discharge. He has been acting erratically at home. She has resolving cough, no sputum production. No URI symptoms, myalgias or fever. Complete ROS is unremarkable. # Decompensated psychosis with non-compliance and SI : agree with psychiatry plan # Urinary Incontinence : failed surgery, on diapers Problem List: 1. Depression 2. Psychosis 3. Suicide ideation Subjective Follow-up For: Medical evaluation Complaints: mild cough, resolving. No sputum production Review of Systems Constitutional: Denies: chills, diaphoresis, fever, malaise, weakness, unexplained weight loss. EENTM: Denies: blurred vision, double vision, visual changes, eye pain, eye drainage, eye tearing, icterus, ear discharge, ear pain, ear redness, hearing changes, nasal congestion, epistaxis, nasal pain, throat pain, throat swelling, mouth pain, tooth pain. Cardiovascular: Denies: chest pain, edema, orthopena, palpitations, peripheral edema, syncope. Respiratory: Reports: cough. Denies: hemoptysis, orthopnea, short of breath, sputum production, stridor, wheezing. Gastrointestinal: Denies: abdominal pain, bloating, constipation, diarrhea, distention, bowel incontinence, melena, nausea, bloody stool, changes in stool, vomiting, steatorrhea. Genitourinary: Reports: see HPI. Musculoskeletal: Reports: back pain, joint pain. Denies: gout, joint swelling, muscle pain, muscle stiffness, neck pain. Skin: Denies: cysts, change in skin color, change in hair/nails, dryness, erythema, jaundice, lesions, lymphangitis, lumps, moles, rash. Neurological/Psychological: Reports: anxiety, depressed. Hematologic/Endocrine: Denies: bruising, bleeding, polyuria, polydipsia, other. Objective Last 24 Hrs of Vital Signs/I&O Vital Signs Date Time Temp Pulse Resp B/P B/P Pulse O2 O2 Flow FiO2 Mean Ox Delivery Rate 08/12 2007 96.9 82 113/52 08/12 1729 97.5 62 101/66 08/12 1404 97.5 76 18 157/72 97 08/12 1056 99.7 84 18 106/70 99 08/12 0848 98.1 75 18 113/64 100 08/12 0549 98.2 65 20 120/76 100 Room Air 08/12 0055 18 08/11 2326 97.0 79 19 96/67 96 Room Air Physical Exam General Appearance: Alert, Oriented X3, Cooperative, No Acute Distress Skin: No Rashes, No Breakdown Skin Temp/Moisture Exam: Warm/Dry HEENT: Atraumatic, PERRLA, EOMI, Mucous Membr. moist/pink Neck: Supple, No JVD, No thryomegaly Lymphatic: Cervical nl Cardiovascular: Regular Rate, Normal S1, Normal S2, No Murmurs Lungs: Clear to Auscultation, Normal Air Movement Abdomen: Normal Bowel Sounds, Soft, No Tenderness, No Hepatospenomegaly Neurological: Normal Gait, Normal Speech, Strength at 5/5 X4 Ext, Normal Tone, Sensation Intact, Cranial Nerves 3-12 NL, Reflexes 2+ Extremities: No Clubbing, No Cyanosis, No Edema, Normal Pulses Vascular: Pulses Symmetrical
[2017-08-13 07:37] VITALS: BP 92/63
[2017-08-13 12:16] VITALS: BP 132/49
--- NOTE | 2017-08-13 14:00 | SOCIAL WORKER SOCIAL HX PSYCH ---
Social History Basic Assessment Insurance Authorization: Insurance #1: Insurance name: CHARLI Phone number: Policy number: [id number] Group number: [id number] Authorization number: Primary Care Physician: Patient's PCP: Ashwin Begum DO PCP's Present Problem: Pt is a 57yo female with of Bipolar Disorder who was brought to the ED on a PEER after threatening to drink rubbing alcohol. Per PEER: "Omkar is not eating or using proper hygiene. Omkar is not letting sleep. Constantly waking him up. omkar's daughter 10 years ago and Omkar continues to relive the . omkar is not continuing to take medication. Omkar threatened to drink rubbing alcohol and had to take the bottle away." While in the Emergency Department, pt has been uncooperative refusing to answer most questions asked by staff. Last night she became agitated and required restraints and sedation. Pt was recently discharged from inpatient Psych treatment at [facility] on Jul 18 and has not followed up with her out patient treatment as she has missed 2 scheduled intakes. Her family reports that she is not taking her meds. Her Randy Harp reports she is up all night and wakes him several times through out the night elbowing him in the back and calling him names. She walks around the home naked. She has made suicidal statements such as"Why am i here. You guys would be better off with out me." She has been exhibiting poor insight into her need for treatment, poor judgment and poor impulse control as she attempted to drink a bottle of rubbing alcohol when her family refused to buy her alcohol. She has barley been sleeping , eating, or grooming. She presents as unkempt and disheveled. Upon Crisis eval she presents as irritable and dismissive. She has no insight on what lead her to the ED and denies all the concerns that lead her to be sent to the ED. When asked why she thinks she is in the ED she states "Something about pushing someone off of the roof, but I did not do it." After minimally responding to few questions in a irritable dismissive manner pt expressed. "I've answered all your questions now get me my clothes so I can go home. I have an appointment to get to tomorrow with the psychiatrist." therefore evaluation was limited as patent was not willing to participate. She continues to be fixated on wanting to leave. Primary Language? Mohawk Language(s) Spoken At Home: Mohawk, Macanese Living Situation Rents or Owns Home? rents Feel Safe Where You Are Living Yes Feel Safe in Relationships? Yes Allergies - Coded Allergies: meloxicam (Intermediate, ITCH 11/14/16) naproxen (From ALEVE) (Intermediate, ITCH 03/31/17) Current Medications - Scheduled Medications Cholecalciferol (Vitamin D3) (Vitamin D) (Unknown Strength) CAPSULE (Unknown Dose) PO DAILY SUPPLEMENT (Reported) Entered as Reported by Herminia Esteban on 06/06/171613 Fluphenazine Decanoate 25 MG/ML VIAL 2.5 MG IM [id number] to clear thinking #1 VIAL Prescribed by Miguel Mora MD on 08/15/17 Fluphenazine HCl 2.5 MG TABLET 2.5 MG PO AT BEDTIME thought disorder #14 TAB Prescribed by Miguel Mora MD on 08/15/17 Latanoprost 0.005 % DROPS 1 GTT OPH QPM GLAUCOMA (Reported) Entered as Reported by Pam Scott on 11/14/16913 Last Taken: At an unknown date and time Scheduled PRN Medications Benztropine Mesylate 1 MG TABLET 1 MG PO Q6P PRN IF HAVING MUSCLE STIFFNESS # 28 TAB Prescribed by Miguel Mora MD on 08/15/17 Melatonin 3 MG TABLET 1 TAB PO PRN SLEEP (Reported) Entered as Reported by Herminia Esteban on 06/06/171613 Last Taken: At an unknown date and time Nicotine (Nicorelief) 2 MG GUM 2 MG PO Q2P PRN nicotine craving #70 GUM Prescribed by Miguel Mora MD on 08/15/17 Olopatadine HCl (Pataday) 0.2 % DROPS 1 GTT OPH DAILY PRN ALLERGIES (Reported ) Entered as Reported by Pam Scott on 11/14/16913 Discontinued Medications LORazepam (Ativan) 1 MG TAB 1 MG PO AT BEDTIME PRN Insomnia #14 TAB Discontinued reason: NotOkInIOP Consequences of Psych Med Use: pt has been noncompliant with medications since recent discharge from [facility] Past History Past Medical History Neurological: NONE EENT: allergies, glaucoma Cardiovascular: NONE Respiratory: NONE Gastrointestinal: NONE Hepatic: NONE Renal: NONE Musculoskeletal: NONE Psychiatric: anxiety, bipolar disease, depression, insomnia, substance abuse Endocrine: NONE Blood Disorders: NONE Cancer(s): NONE PRESSURE CONTROLLER/Reproductive: NONE Past Surgical History Surgical History: appendectomy, cholecystectomy /Family History Place/Country of Origin: [place] Childhood Family Constellation: Pt reports having a normal childhood family Primary Childhood Caretakers: father, mother Family Life During Childhood: "wonderful" DCF Involvement? Yes Explain: Pt is poor historian at times Relationship w/Mother: "wonderful" Relationship w/Father: "wonderful" Any Sibling(s)? Yes Sibling's Gender(s)/Age(s): male Sibling 1:, male Sibling 2:, female Sibling 3:, female Sibling 4:, female Sibling 5:, male Sibling 6: Relationship w/Sibling(s): Pt said she gets along with her siblings, is the middle of 7 siblings . She said they live all around and would not elaborate Relationship w/Friends: " good , I have lots of friends." Number of Pregnancies: 7 Number of Miscarriages: 4 Abuse/Trauma History Trauma History/Current Trauma: emotional Legal History Legal Guardian/Address/Phone: self Hx of Juvenile Legal Charges? No Hx of Adult Legal Charges? No Civil Proceedings: NA Domestic Relations Court: NA Child Protective Serv Involvmnt NA Psychosocial History Primary Support System: Strengths/Capabilities: very supportive family Physical Limitations (Interventions): none observed, patient mentioned having an implant and son stated it was for incontenese Last Physical: 2017 History of Blackouts? No ADL Limitations: showering [place]/Social/Peer Relations pt reports she has really good friends Meaningful Activities: daily chores are her meaningful activities Childhood Mormonism: Zoroastrianism, Methodist Current Quaker Affiliation: Zoroastrianism, Methodist Is Spirituality Important to You? yes Cultural/Ethnic Issues: none Are There Developmental Issues? No Milestones Achieved: fine motor, gross motor Psychiatric Treatment History Psych Treatment Inpatient Treatment Yes Outpatient Treatment No Location of Treatment [facility] Reason for Treatment Bipolar Dates of Treatment Jul 2017 Response to Treatment no follow through Diagnosis: Bipolar Disorder Psychodynamic Issues: none stated Risk Factors: high anxiety/distress, SA/MH hospitalized, substance abuse, poor impulse control, lack of outcome concern Substance Use/Abuse History Drug Use/Abuse Substance Used/Abused Marijuana First Use pt unable to answer Last Used pt unable to answer How much used/taken pt unable to answer How often pt unable to answer For how long pt unable to answer Route of use pt unable to answer Have You Ever Attended AA? No Symptoms of Use: daily cannabis use Substance Abuse Treatment Substance Abuse Treatment Inpatient Treatment No Outpatient Treatment No Sexual History Sexually Active Yes # of partners 1 Sexual Orientation Heterosexual Use of Protection No Sexual Concerns: none Education History Highest Level of Education: bachelor's degree Highest Grade Completed: bachelors Vocational Year Completed: NA Number of College Years: 4 College Degree/Major: NA Other Degree(s): NA Preferred Learning Style: visual, auditory, experiential HX of Learning Difficulties: None reported Barriers to Learning: None reported Special Communication Needs: None reported Employment History No. 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 History Have You Been in The ? No If Yes, Explain: NA Date of Discharge: NA Current Mental Status Mental Status Orientation: Person, Place, Situation Affect: Anxious, Angry, Broad, Inappropriate, Labile, Variable Speech: Evasive, Loud, Pressured Neuro-vegetative: Appetite Decreased, Concentration Poor, Hyperactivity, Sleep Disturbance Appearance Appearance- Dress/Hygiene: unkempt, disheveled Behaviors Thought Process: Disorganized, Flight of Ideas, Irrational, Loose Association Thought Content: Entitled, Obsessions Memory: Impaired Insight: Poor SI/HI Risk Assessment Past Suicidal Ideation/Attempts Yes Current Suicidal Ideation/Att No Past Homicidal Ideation/Att: No Current Homicidal Ideation/Attempts No Degree of Intent: Made Preparations Danger To: Others, Self Gravely Disabled: Inability, Lack of Insight, Poor Impulse Control, Poor Judgment Lethality Ratin - Conclusion and Recommendations for treatment - and discharge planning Summary: Pt reports feeling well and denies need for continued hospitalization. Pt reports plan to be medication compliant once discharged.
--- NOTE | 2017-08-13 15:15 | SOCIAL WORKER PROG NOTE PSYCH ---
Social Work Progress Note Progress Note Angela was in bed this afternoon. She would only talk to me in her room. She looked drowsy. She remembered who I was from the last time she was here. I asked her what has happened since her last admission? She replied that she needed to return home because she needed her family needed her to take care of the kids. I asked what kids she was referring to? She stated "my grandchildren." I told her that her family seemed concerned about her and thought she should be here for now. She denied that was the case. She kept insisting that she had a doctors appt. schedule already and didn't need anything. I told her I would like to set up a family meeting with her . She said we have a meeting set up for today. I told her I have not spoken with her and I would need her to sign a release. She stated she has already signed everything. I told her that there is no release in her chart and she may be confused with the last time she was here. She said she already signed everything she needs to sign. She then insisted that I speak with her today. I told her I will after she signs the release. She would not comply with my request. Thoughts appears somewhat disorganized at this time. I told her I would speak with her tomorrow. She said she was ready to go home today. I told her she wouldn't be leaving today.
--- NOTE | 2017-08-13 15:29 | CPS PROVIDER INIT ASMT PSYCH ---
Psychiatric Admission Drawer In Hand's Note Reviewed: Yes Patient Seen and Examined: Yes Identifying Information: 57 yo MWF with bipolar d/o, known to me from ER evaluation on 08/11/17, admitted on 08/12/17 on a PEC from ER. Chief Complaint: Made comments at home about ingesting rubbing alcohol. Reportedly was walking around the house naked. Reportedly was medication non-compliant. Reaction to Hospitalization: "Sad and depressed. I don't want to be here. I want to go home." History of Present Illness Onset of Illness: Chronic, onset date unknown. Circumstances Leading to Admission: Likely medication non-compliance. Problem(s) Justifying Need for Admission: Suicidal comment. Poor insight and judgment. Other HPI: Case and treatment plan discussed in team meeting. Staff reports that the patient is denying SI. Described as very tearful. Sleep: regular. Appetite: regular. Energy: normal. Past Psychiatric History Past Diagnosis(es)- if any: Bipolar d/o. Past Precipitating Factors- if any: Incontinent and regressed. - Include inpatient and outpatient treatment Treatment History: Cancelled OPS intake 07/21/17 and missed appointment 07/30/17. Past treatment with Dr. Cheek in [place] in late 2016. Multiple inpatient admits, including 1 prior admit to [facility] [place] and [place]. History of Suicide Attempts or Gestures Denies. Substance Abuse History: Tobacco at 1 ppd. Alcohol: "not that much, depends on the occasion." MJ: "not that much, was daily." Cocaine in the past. Allergies: Coded Allergies: meloxicam (Intermediate, ITCH 11/14/16) naproxen (From [facility]) (Intermediate, ITCH 03/31/17) Home Med List: Fluphenazine 2.5 mg po qhs Ativan 1 mg po qhs prn insomnia Nicoderm 14 mg top daily - Include any medical condition(s) that may - impact the patient's recovery/remission Past Medical History: Bilateral eye allergies. Glaucoma OD. Tendonitis/arthritis, both wrists. Urinary incontinence/stimulator. Gas problems. S/p anca'y and chol'y. S/p L wrist tendon surgery. Past History Medical History Neurological: NONE EENT: allergies, glaucoma Cardiovascular: NONE Respiratory: NONE Gastrointestinal: NONE Hepatic: NONE Renal: NONE Musculoskeletal: NONE Psychiatric: anxiety, bipolar disease, depression, insomnia, substance abuse Endocrine: NONE Blood Disorders: NONE Cancer(s): NONE COMMUNICATION COORDINATOR/Reproductive: NONE Other Medical Hx: urinary incontinence History of MRSA: No History of VRE: No History of CDIFF: No Isolation History: Standard Surgical History Surgical History: none Psychiatric Family/Social Hx Family History Psychiatric Illness: Denies. Substance Use: Siblings: drugs and alcohol. Suicides: Denies. Social History Living Situation: Lives with . Significant Relationships (family/friends): . Has son, 24, and daughter, 32. A daughter at age 21 in 2005 from cocaine intoxication. Education: Associates degree in [employer] services. Vocation/Occupation: Last worked in late 2016 at a [employer] in [place]. Legal: Hx arrests for DV and drugs. Healthly Behaviors Screening Tobacco Screening Tobacco Use from ED Docu: Current Daily Use Daily Tobacco Use Amount/Type: => 5 Cigarettes daily - If tobacco counseling indicated - the following topics are required. - #1 Recognizing dangerous situations. - #2 Coping Skills. - #3 Basic information about quitting. Status of Tobacco Cessation Counseling: #1, #2 AND #3 Completed Cessation Med Status Nicotine Gum Ordered Alcohol Screening - ETOH screen POS if BAL >=80 or Audit-C>= M4/F3 Audit-C Score from Diag Assess: 7 Blood Alcohol Level: EtOH <10.0 08/09/17 Alcohol Use Screening Results: Pos per Audit C &/or BAL - If ETOH counseling indicated - the following topics are required. - #1 Express concern about the patient's - drinking at unhealthy levels, include informing - of national norms for moderate drinking: - men <= 14 drinks/week, max 4 drinks/occasion - women <= 7 drinks/week, max 3 drinks/occasion - #2 Providing feedback, including linking alcohol to - negative physical effects (liver injury, hypertension) - negative emotional effects (relationship problems and - depression) - negative occupational consequences (reduced work - performance) - #3 Advising the patient to abstain from alcohol or - to drink below national norms for moderate drinking - (as listed above). Status of ETOH Use Counseling: #1, #2 AND #3 Completed. Metabolic Screening - Screen if on a Neuroleptic Medication - Metabolic screening should include: - Blood Pressure, BMI, Glucose or Hgb A1c, & a - Lipid profile from within the past 365 days. Metabolic Screening () Not Applicable, patient not on a neuroleptic. OR () Patient on a neuroleptic(s) . Enter below results for Hemoglobin A1C, and lipid panel if obtained during the last 365 days. BMI: 18.700 Blood Pressure: 132/49 Laboratory Results From [facility] (If applicable): [x] Lipids 01/17/17 WNL. No glycohemoglobin yet. Exam and Plan Mental Status Examination Ambulation Status: Ambulation is WNL. Appearance: Thin WF, dressed in blue paper scrubs, sitting in a chair drinking hot cocoa. Attitude towards examiner: Superficial. Polite. Psychomotor activity: There is no psychomotor agitation/retardation. Behavior: WNL. Quality of speech: Normal in volume, rate and tone. Affect: Calm and blunted. Mood: "I'm okay." Reports she came to the ER because of sadness and depression. Stressors include of daughter in 2005 and TV news about violence. Reports medicaion compliance. Mood: "just wondering whether I'm going to go tonight or not." Sad 03/23 but 04/22 because not leaving today. Anxiety 04/22 "because you're telling me I can't go home with my family tonight. " Denies feeling hopeless, helpless, worthless or guilty. Suicidal Ideation: Denies active and passive SI. Homicidal Ideation: Denies HI. Hallucinations: Denies AH and VH. Paranoid/Delusional Material: Denies PI and magical granger. Difficulties with thought organization: None. But superficial/minimizing. Main focus is on discharge. Insight: Poor. Judgment: Poor. Orientation: Ox3. Cognition: Grossly intact. Memory Function: Grossly intact. Estimate of intellectual functioning: Average. Assets/Strengths Patient Identified Assets/Strengths: "I don't know." Impression/Plan Impression and Plan: Patient is here in the context of likely poor medication compliance. Did not attend follow up at OPS. - Include all active medical diagnosis that require tx DSM 5 Diagnosis(es): Bipolar disorder, depressed. Cannabis use disorder. R/o alcohol use disorder. - Initial Tx Plan for Active Psych & Medical Conditions Treatment Plan: The patient will be monitored on the unit for safety and mood disorder. Additional information is needed from collaterals (family). Home medications have been continued/restarted. Anticipate once clinically stable, that the patient will return to home and be referred to an IOP. - Factors that would help patient function - in a less restrictive setting. Factors: Absense of SI. Commitment to treatment.
[2017-08-13 16:04] VITALS: BP 106/50
[2017-08-13 19:42] VITALS: BP 115/54
[2017-08-14 08:02] VITALS: BP 115/89
--- NOTE | 2017-08-14 08:14 | SOCIAL WORKER PROG NOTE PSYCH ---
Social Work Progress Note Progress Note reference number: [id number] for [facility] Sustainability Analyst is Trish Yan [phone] ext [phone] Den Aldrich (crisis) called her 2x and left messages but have yet to receive a return call. Met briefly with Angela and Dr. Mora. Angela presents as depressed with a flat constricted affect. She is in agreement that she is not on the right medications and seems more willing to work with us today on tx. She did sign a release for her and was willing to sign a release for Dr. Gonzalez. She also agreed to sign in voluntarily. Called Mr. Fishman and scheduled a family meeting for 10:30am tomorrow. Mr. Fishman stated that his 's issue is that she doesn't take her medication. Talked about eligibility for VNS services. He reports that she doesn't have Husky D and that was only supposed to be in place when he was out of work. I told him that I didn't think [facility] would pay, but I could check. He would like to bring his daughter Aditi to the meeting as well.
--- NOTE | 2017-08-14 11:58 | CP SOUTH PROGRESS NOTE PSYCH ---
Psych (Inpt) Progress Note Progress Note Include the following elements, when applicable: Involvement in the active treatment of the patient with behavioral observations of the patient and the patient's response to the treatment. Review of the ongoing treatment process in the context of the treatment plan. Indication of how multi-disciplinary staff members are carrying out the treatment plan. Plans for future interventions and recommendations for revision of the treatment plan. Liaison with other physicians/providers. Progress Note: Case and treatment plan discussed in team meeting. Staff reports that the patient stated that her day was up and down. Social with peers and pleasant. Would not get out of bed to meet with child welfare social worker yesterday, so child welfare social worker met with patient in her room. Patient refused to sign a release of information for her . Was incontinent of urine. Patient seen at 9:56 AM individually and then with Jodi Mcnamara LCSW. The patient is dressed in blue paper scrubs. Reports she had a phone call and visit with her yesterday. Reports she still feels nervous about getting out of here. I asked about past medication trials. She indicated she has been on lithium in the past without difficulty. Never had Lamictal. Patient agreed to sign a release of information for Dr. Giang in [place]. She stopped going to see him because the couple moved to [place] about 2 years ago. Affect is calm and depressed and the patient appears to have low energy. Mood is still anxious , nervous, achy at her wrists, which is chronic. Mood: "I just want to cry because I'm having trouble setting up discharge from here." Rates sad mood "a good 9-10/10." Rates anxiety 8-9/10. Denies feeling hopeless or helpless. Feels worthless sometimes. Feels guilty for letting people down. Denies active and passive suicidal ideation. Denies homicidal ideation. Denies auditory and visual hallucinations and paranoid ideation. Reports she did not sleep much, as she stayed up late, but when she slept, it was okay. Appetite: "I can always eat." Energy: Patient reports energy is pretty low right now. Patient reports she cannot recall when she last had a manic phase. Patient is considering signing-in here voluntarily. While eager for discharge, she seems a little less resistant toward treatment. IMPRESSION: Slow progress. Continue present treatment plan. Patient appears to be in a depressed phase. We will consider addition of an antidepressant or Lamictal. Additional information from and from Dr. Giang will likely prove useful. Patient continues to require inpatient level of care.
[2017-08-14 12:17] VITALS: BP 97/59
[2017-08-14 15:35] VITALS: BP 92/56
--- NOTE | 2017-08-14 15:51 | SOCIAL WORKER TX PLAN PSYCH ---
Treatment Plan - Please Document: - Evidence that there is ongoing collaboration between - the patient and the interdisciplinary team, - including the patient's active participation and - responsibility for engaging in the treatment regimen, - and that the treatment plan is individualized and - relevant to the patient's conditions. - Treatment plan should reflect documentation indicating - that all active therapeutic efforts are included. Strengths/Capabilities: very supportive family Physical Limitations (Interventions): none observed, patient mentioned having an implant and son stated it was for incontenese Patient Identified Trmt Goals: "I want to return home" Discharge Plan: Recommendation would be symptom management IOP Problem/Goals #1 Problem #1: depression Goal (Short Term): Patient will explore medications to alleviate her depressive symptoms Goal (Halfway): Patient will agree to follow up with treatment and identify an outpatient provider Interventions: Patient will be offered medication management with the Psychiatrist. Patient will be offered groups on symptoms managment, coping skills, relaxation skills, goals group, accupuncture, as well as other therapeutic interventions to self- soothe. automotive worker will assess motivation for tx and discuss benefits. automotive worker will coordinate a family meeting and assist with aftercare planning. DSM5/PS Stressors/Medical Prob Diagnosis' (DSM 5, Stressors, Medical): F31.9 Bipolar F12.20 Cannabis Use Current GAF: 20 Treatment Team - Responsibilities of members of the treatment team include: - Medication Management- MD or CENTRAL SUPPLY CLERK - Medication Administration and Monitoring- Nurse - Group Therapy- Occupational Therapist - 1:1 Therapy,Disch Planning,family involvement-Rug Underlay Machine Operator
[2017-08-14 19:53] VITALS: BP 109/62
[2017-08-15 07:46] VITALS: BP 103/65
--- NOTE | 2017-08-15 11:01 | SOCIAL WORKER PROG NOTE PSYCH ---
See Addendum Social Work Progress Note Progress Note Family meeting held with Angela, her , and daughter Aditi. Her Randy couldn't confirm that she was taking her meds as prescribed because he was working and didn't see her take them. They said she started acting more bizarre at home and it almost seemed like she was with someone with dementia. They felt that she has made improvements in the last couple of days that she has been at the hospital. Angela shared that she hadn't been able to cry on the meds that she used to be on and that at least now she had tears. Dr. Mora explained that it could of been a side effect of the SSRI she was on. Aditi shared that she will be taking her Mother to her house in [place] for a couple of weeks to help keep an eye on her. All agreed that she had been doing well for years with the medications that she was prescribed 2 years ago. agreed to reach out to Dr. Cheek to see what that medication regime looked like. In the meantime Dr. Mora offered to start Angela on an injectable of the Prolixin to help with the medication compliance. Angela and family seemed to be in agreement. We discussed her going to an IOP here at [facility] as an aftercare plan. Aditi agreed to help her Mom get there on a regular basis, along with her . Dr. Mora asked Angela some questions regarding her current mental status. She reported on a rating scale from 1-10, 10 most severe that her anxiety was a 6 and feelings of sadness were a 2. She denied feeling hopeless, helpless, worthless, or guilty. She denied SI/HI or AH /VH. All were in agreement that she should leave the hospital today and not continue to stay further, since her acute symptoms had stabilized. Dr. Mora called for an intake at [facility]. One was available for 11:30am. Daughter will plan to come back and pick her up after her assessment.
[2017-08-15] MEDS ORDERED: FLUPHENAZI25 MG/1 ML IM (11:12)
[2017-08-15] MEDS ORDERED: NICORELIEF2 MG PO (11:12)
[2017-08-15] MEDS ORDERED: FLUPHENAZINE H PO (11:12)
[2017-08-15] MEDS ORDERED: BENZTROPINE MESY1 M1 PO (11:12)
[2017-08-15] MEDS ORDERED: ATIVAN1 M1 PO (11:12)
--- NOTE | 2017-08-15 11:19 | Patient Discharge Instructions ---
Psych Discharge Inst General Discharge Information Reason for Admission: Made comments about ingesting rubbing alcohol. Reportedly was walking around the house naked. Reportedly was medication non-compliant. Psy Discharge Primary Diag+ Bipolar disorder, depressed Psy Discharge Secondary Diag+ Cannabis use disorder R/o alcohol use disorder Glaucoma Tendonitis B/L wrists Summary Tests/Major Procedures Lab ALT 34 U/L 08/09/172016 AST 21 U/L 08/09/172016 BUN 14 mg/dL 08/09/172016 Carbon Dioxide 26 mmol/L 08/09/172016 Chloride 106 mmol/L 08/09/172016 Cholesterol 195 MG/DL 01/17/17 UNK Cholesterol/HDL Ratio 4 % 01/17/17 UNK Creatinine 0.6 mg/dL 08/09/172016 Estimated GFR > 60 ml/min 08/09/172016 Glucose 86 mg/dL 08/09/172016 HDL Cholesterol 55 mg/dL 01/17/17 UNK Hemoglobin A1c 5.6 % 08/14/17 0615 LDL Cholesterol, Calc 121 mg/dL 01/17/17 UNK Potassium 4.0 mmol/L 08/09/172016 Sodium 145 mmol/L 08/09/172016 TSH &T3 &Free T4 Intrp 1.490 uIU/mL 07/14/17 1121 Triglycerides 98 mg/dL 01/17/17 UNK Absolute Lymphocytes 3.8 /CUMM H 08/09/172016 Hct 41.6 % 08/09/172016 Hgb 13.8 G/DL 08/09/172016 MCH 32.6 PG H 08/09/172016 Plt Count 296 /CUMM 08/09/172016 WBC 9.3 /CUMM 08/09/172016 Serum Alcohol < 10.0 MG/DL 08/09/17 2017 Urine Cannabis Screen > 80.00 NG/ML H 08/09/17 1715 Ur Epithelial Cells MOD H 08/09/17 1715 Ur Leukocyte Esterase NEG 08/09/17 1715 Urine Bacteria FEW H 08/09/17 1715 Urine Hemoglobin SMALL H 08/09/17 1715 Urine Mucus RARE 08/09/17 1715 Urine RBC 3-5 /HPF 08/09/17 1715 Urine WBC 1-3 /HPF H 08/09/17 1715 Studies Pending at PR: None. Patient Instructions Contact Information Your Psychiatrist on [facility] was Miguel Mora MD * If you are experiencing an emergency related to this hospitalization, please call [phone] to contact the treating psychiatrist or the psychiatrist-on- call. * To Request a copy of your medical records, please contact the Medical Records Department at [phone]. * To request results of studies pending at the time of discharge, please call [phone]. * Continue your Medications until directed to stop by your Healthcare provider. General Medication Information Please continue to take your new medications and your continued home medications , unless otherwise indicated on your discharge medication list, or unless directed by your MD or BAG MACHINE HELPER to stop them. Special Instructions Diet Regular Activity Normal Other Inst/Recommendations See PCP for medical conditions, abnormal labs listed above. - Tobacco Use Treatment Offered Post DC Medications Offered: Script Given-See Med List Post DC Tobacco Treatment Plan: [facility] Tobacco Tx Pgm Program Appt Date: 08/20/17 Program Appt Time: 1600 - EtOH/Drug Use D/O Treatment Offered Post DC Medications Offered: Med Not Indicated for D/O Post DC EtOH/SubAbuse TX Plan: [facility] SubAbuse/Dual IOP Program Appt Date: 08/15/17 Program Appt Time: 1130 Metabolic Screening () Not Applicable, patient not on a neuroleptic. OR () Patient on a neuroleptic(s) . Enter below results for Hemoglobin A1C, and lipid panel if obtained during the last 365 days. BMI: 18.700 Blood Pressure: 103/65 Laboratory Results From [facility] EHR (If applicable): [x] Please see labs listed above. Advance Directives Does the Patient have Medical Advance Directives No/Refused further info Does Pt have Psychiatric Advance Directives? No/Refused further info Does Patient have a Designated Surrogate Decision Maker: No Information About Psychiatric Advance Directives Provided? Refused Discharge Plan Post Hospital Treatment Plan: Patient will be living with daughter, Aditi, x2+ weeks. Daughter will help with medication adherence.
--- NOTE | 2017-08-15 11:30 | IP INCIDENTAL NOTE PSYCH ---
Incidental Note Notation: I tried to reach Dr. Sam Drake at [phone] but voicemail box is full and cannot accept new messages.
--- NOTE | 2017-08-15 11:41 | CP SOUTH PROGRESS NOTE PSYCH ---
Psych (Inpt) Progress Note Progress Note Include the following elements, when applicable: Involvement in the active treatment of the patient with behavioral observations of the patient and the patient's response to the treatment. Review of the ongoing treatment process in the context of the treatment plan. Indication of how multi-disciplinary staff members are carrying out the treatment plan. Plans for future interventions and recommendations for revision of the treatment plan. Liaison with other physicians/providers. Progress Note: Case and treatment plan discussed in team meeting. Staff reports that the patient signed-in voluntarily. Family meeting with and daughter was scheduled for 10:30 a.m. Patient wants to go home after family meeting. Described as appearing more organized. Did some journaling. Patient seen in the context of family meeting at 10:39 AM. , daughter and Jodi Mcnamara LCSW were present. Daughter reports that the patient was more stable on a previous medication regimen 2 years ago. Patient complains that she was not able to cry on that regimen. I suspect an SSRI was one of the components. Patient feels well now. and daughter feel that she has stabilized enough to be discharged. Affect is calm and euthymic. Patient denies feeling sad, rating sad mood 1-2/10. Rates anxiety 6/10. Denies feeling hopeless, helpless, worthless or guilty. She is eager for discharge. Denies active and passive suicidal ideation. Denies homicidal ideation. Denies auditory and visual hallucinations. Denies paranoid ideation. Oriented 3. Reports she slept well but had 3 middle of the night awakenings. Describes appetite as just great. Reports having a lot of energy. Denies any muscle stiffness. Tolerating medications well, without complaint. She agrees to begin Prolixin Decanoate. Feels ready and safe for discharge. We do not have Prolixin Decanoate in stock for administration on the unit today. I attempted to reach the patient's prior psychiatrist, Dr. Andrew Giang, but I was unable to get through, as his voice mailbox is full. Family will try to get a copy of prior medication list from patient's pharmacy. Plan is for discharge today to IOP intake at 11:30 AM. I informed the patient that she will need to come off of lorazepam at bedtime because she will be in the dual diagnosis track. Plan is for patient to stay with her daughter, Aditi, for at least 2 weeks. Aditi will help supervise the patient's medication compliance. IMPRESSION: Condition improved. Okay for discharge today to daughter's home. Patient will remain on oral Prolixin 2.5 mg p.o. q.h.s. and family should pickling tank operator Prolixin Decanoate vial at outside pharmacy for administration at [facility]. This information has been conveyed to [facility]. Hopefully, while the patient is at [facility], we will determine what regimen the patient did well on 2 years ago.
--- NOTE | 2017-08-15 11:49 | DISCHARGE SUMMARY REPORT-PSYCH ---
Visit Information Visit Dates/Diagnosis' Admission Date: 08/12/17 Discharge Date: 08/15/17 Reason for Admission: Made comments about ingesting rubbing alcohol. Reportedly was walking around the house naked. Reportedly was medication non-compliant. Psy Discharge Primary Diag: Bipolar disorder, depressed Psy Discharge Secondary Diag: Cannabis use disorder R/o alcohol use disorder Glaucoma Tendonitis B/L wrists Hospital Course Significant Lab Findings: Lab ALT 34 U/L 08/09/172016 AST 21 U/L 08/09/172016 BUN 14 mg/dL 08/09/17 2017 Carbon Dioxide 26 mmol/L 08/09/172016 Chloride 106 mmol/L 08/09/172016 Cholesterol 195 MG/DL 01/17/17 UNK Cholesterol/HDL Ratio 4 % 01/17/17 UNK Creatinine 0.6 mg/dL 08/09/172016 Estimated GFR > 60 ml/min 08/09/172016 Glucose 86 mg/dL 08/09/172016 HDL Cholesterol 55 mg/dL 01/17/17 UNK Hemoglobin A1c 5.6 % 08/14/17 0615 LDL Cholesterol, Calc 121 mg/dL 01/17/17 UNK Potassium 4.0 mmol/L 08/09/172016 Sodium 145 mmol/L 08/09/172016 TSH &T3 &Free T4 Intrp 1.490 uIU/mL 07/14/17 1121 Triglycerides 98 mg/dL 01/17/17 UNK Absolute Lymphocytes 3.8 /CUMM H 08/09/172016 Hct 41.6 % 08/09/172016 Hgb 13.8 G/DL 08/09/172016 MCH 32.6 PG H 08/09/172016 Plt Count 296 /CUMM 08/09/17 2017 WBC 9.3 /CUMM 08/09/172016 Serum Alcohol < 10.0 MG/DL 08/09/17 2017 Urine Cannabis Screen > 80.00 NG/ML H 08/09/17 1715 Ur Epithelial Cells MOD H 08/09/17 1715 Ur Leukocyte Esterase NEG 08/09/17 1715 Urine Bacteria FEW H 08/09/17 1715 Urine Hemoglobin SMALL H 08/09/17 1715 Urine Mucus RARE 08/09/17 1715 Urine RBC 3-5 /HPF 08/09/17 1715 Urine WBC 1-3 /HPF H 08/09/17 1715 Course Complications: None. Consultations: Patient was seen for admission H&P by Dr. Davies, who noted: "Assessment: 57 YO F PMH of bipolar disorder and depression brought in by ambulance on a police paper for evaluation of suicidal ideation and medication noncompliance. Patient was recently admitted to Inpatient Psychiatry and has been noncompliant since discharge. He has been acting erratically at home. She has resolving cough, no sputum production. No URI symptoms, myalgias or fever. Complete ROS is unremarkable. # Decompensated psychosis with non-compliance and SI : agree with psychiatry plan # Urinary Incontinence : failed surgery, on diapers" Allergies: Coded Allergies: meloxicam (Intermediate, ITCH 11/14/16) naproxen (From ALEVE) (Intermediate, ITCH 03/31/17) Hospital Course/TX Response: The patient was monitored on the unit for safety, psychosis and mood disorder. She participated and multimodal treatments on the unit. The patient was initially resistant towards treatment. Had limited insight and judgment. Tended to minimize. Her main focus was discharge. Patient did comply with Prolixin 2.5 mg p.o. q.h.s. and her mood and affect improved. We suspect she was not fully medication-compliant prior to admission. A successful family meeting was held on 08/15/17. Patient has been eager for discharge all along. and daughter are comfortable with her release today. Patient has agreed to attend [facility] and she has an intake today, 08/15/17 at 11:30 AM. Patient will need to come off of HS lorazepam because she will be in the dual diagnosis track because of cannabis use. Patient is agreeing to start on Prolixin Decanoate but it is not in-stock, so it is being prescribed for her for administration at the [facility]. Patient and family would like her to return to a previous medication regimen but we do not have details on that yet. This can be pursued while the patient is in the [facility]. Patient will be staying with her daughter, Aditi, for at least 2 weeks. Aditi will help supervise patient's medication adherence. Progress note from date of discharge, 08/15/17: Case and treatment plan discussed in team meeting. Staff reports that the patient signed-in voluntarily. Family meeting with and daughter was scheduled for 10:30 a.m. Patient wants to go home after family meeting. Described as appearing more organized. Did some journaling. Patient seen in the context of family meeting at 10:39 AM. , daughter and Jodi Mcnamara LCSW were present. Daughter reports that the patient was more stable on a previous medication regimen 2 years ago. Patient complains that she was not able to cry on that regimen. I suspect an SSRI was one of the components. Patient feels well now. and daughter feel that she has stabilized enough to be discharged. Affect is calm and euthymic. Patient denies feeling sad, rating sad mood 1-08/23. Rates anxiety 12/21. Denies feeling hopeless, helpless, worthless or guilty. She is eager for discharge. Denies active and passive suicidal ideation. Denies homicidal ideation. Denies auditory and visual hallucinations. Denies paranoid ideation. Oriented 3. Reports she slept well but had 3 middle of the night awakenings. Describes appetite as just great. Reports having a lot of energy. Denies any muscle stiffness. Tolerating medications well, without complaint. She agrees to begin Prolixin Decanoate. Feels ready and safe for discharge. We do not have Prolixin Decanoate in stock for administration on the unit today. I attempted to reach the patient's prior psychiatrist, Dr. Andrew Giang, but I was unable to get through, as his voice mailbox is full. Family will try to get a copy of prior medication list from patient's pharmacy. Plan is for discharge today to [facility] intake at 11:30 AM. I informed the patient that she will need to come off of lorazepam at bedtime because she will be in the dual diagnosis track. Plan is for patient to stay with her daughter, Aditi, for at least 2 weeks. Aditi will help supervise the patient's medication compliance. IMPRESSION: Condition improved. Okay for discharge today to daughter's home. Patient will remain on oral Prolixin 2.5 mg p.o. q.h.s. and family should roller picker Prolixin Decanoate vial at outside pharmacy for administration at [facility]. This information has been conveyed to [facility]. Hopefully, while the patient is at [facility], we will determine what regimen the patient did well on 2 years ago. Discharge HBIPS - Tobacco Use Treatment Offered Post DC Medications Offered: Script Given-See Med List Post DC Tobacco Treatment Plan: [facility] Appt Date: 08/20/17 Program Appt Time: 1600 - EtOH/Drug Use D/O Treatment Offered Post DC Medications Offered: Med Not Indicated for D/O Post DC EtOH/SubAbuse TX Plan: [facility] SubAbuse/Dual IOP Program Appt Date: 08/15/17 Program Appt Time: 1130 Metabolic Screening - Screen if on a Neuroleptic Medication - Metabolic screening should include: - Blood Pressure, BMI, Glucose or Hgb A1c, & a - Lipid profile from within the past 365 days. Metabolic Screening () Not Applicable, patient not on a neuroleptic. OR () Patient on a neuroleptic(s) . Enter below results for Hemoglobin A1C, and lipid panel if obtained during the last 365 days. BMI: 18.700 Blood Pressure: 103/65 Laboratory Results From [facility] (If applicable): [x] Lab Cholesterol 195 MG/DL 01/17/17 UNK Cholesterol/HDL Ratio 4 % 01/17/17 UNK HDL Cholesterol 55 mg/dL 01/17/17 UNK Hemoglobin A1c 5.6 % 08/14/17 0615 LDL Cholesterol, Calc 121 mg/dL 01/17/17 UNK Triglycerides 98 mg/dL 01/17/17 UNK Discharge Instructions General Discharge Information Multiple Neuroleptics: ([x]) Not Applicable OR Document below three failed attempts at monotherapy, or a plan to taper to monotherapy, or augmentation of Clozapine. () Discharge Diet Regular Discharge Activity Normal DC Disposition: Patient will live with daughterAditi x 2+ weeks. Referrals Ordered Referrals Provider Referral 08/15/17 For Groups: [[facility]] [facility] Intake 08/15/17 11:30am [address] [place] [address] Prescriptions Stop taking the following medications: LORazepam (Ativan) 1 MG TAB ORAL AT BEDTIME as needed for Insomnia Qty = 14 Continue taking these medications: Olopatadine HCl (Pataday) 0.2 % DROPS 1 Drop In the eye DAILY as needed for ALLERGIES Comments: Last Taken:TO RESUME AT HOME Time: Latanoprost (Latanoprost) 0.005 % DROPS 1 Drop In the eye Every night Instructions: BOTH EYES Comments: Last Taken:TO RESUME AT HOME Time: Cholecalciferol (Vitamin D3) (Vitamin D) (Unknown Strength) CAPSULE Unknown Dose ORAL DAILY Comments: Last Taken:NOT GIVEN IN THE HOSPITAL Time: Melatonin (Melatonin) 3 MG TABLET 1 Tablet ORAL as needed for SLEEP Comments: Last Taken:08/14/17 Time:2099 Fluphenazine HCl (Fluphenazine HCl) 2.5 MG TABLET 2.5 Milligram ORAL AT BEDTIME Qty = 14 Comments: Last Taken:08/14/17 Time:2099 This prescription has been renewed Start taking the following new medications: Nicotine (Nicorelief) 2 MG GUM 2 Milligram ORAL EVERY 2 HOURS NEEDED as needed for nicotine craving Qty = 70 No Refills Comments: Last Taken:NOT USED IN THE HOSPITAL Time: Benztropine Mesylate (Benztropine Mesylate) 1 MG TABLET 1 Milligram ORAL EVERY SIX HOURS NEEDED as needed for IF HAVING MUSCLE STIFFNESS Qty = 28 No Refills Comments: Last Taken:NOT USED IN THE HOSPITAL Time: Fluphenazine Decanoate (Fluphenazine Decanoate) 25 MG/ML VIAL 2.5 Milligram INTRAMUSC [id number] Qty = 1 No Refills Instructions: 0.1 ml (2.5 mg) IM [id number] Comments: Last Taken:TO START AT IOP Time: Other Inst/Recommendations See PCP for medical conditions, abnormal labs listed above. Copies To: Sofia Nash LPC
--- NOTE | 2017-08-15 15:31 | SOCIAL WORKER PROG NOTE PSYCH ---
Social Work Progress Note Faxed Referral(s) Referred To: [facility] Transition of Care Documents sent: Health Summary Faxed to: [facility] Fax #: [phone] Faxed by: Jodi Mcnamara Date faxed: 08/15/17 Time Faxed: [phone]
--- NOTE | 2017-08-15 15:40 | IP INCIDENTAL NOTE PSYCH ---
Incidental Note Notation: Patient went to [facility] and refused to do intake, as she has no intention of doing urine drug screens or quitting MJ use. Apparently has been smoking MJ for 40 years. I called daughter, Aditi and explained what happened. OPS follow up has been arranged for next week with an intake with Sana Barrios
== END 2017-08-15 11:45 | DRG 885 ==
LOC: ERH 16:36 → ENTRNSPT 08-12 15:43 → ENRESERV 08-12 15:45 → CP SOUTH 08-12 15:51 → CMPTRNSPT 08-12 15:57 → ERHI 08-12 16:37 → CP SOUTH 08-12 17:06
PROVIDERS: Physician Assistant Medical
DX: F31.9 Bipolar disorder, unspecified (principal); F12.90 Cannabis use, unspecified, uncomplicated; H40.9 Unspecified glaucoma; M77.9 Enthesopathy, unspecified
CPT/HCPCS: 36415; 80307; 81001; 96372; 99291; G0463; G0480; J1200; J1630; Q2036